=== PATIENT | female | born 1965 | race Caucasian/White ===

== ENCOUNTER 2024-09-01 13:35 | Emergency (ER) | payer SELFPAY ==
[2024-09-01 13:36] VITALS: BP 145/100; PULSE 120; RESP 16; TEMP 36.4; O2SAT 100
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
--- OUTSIDE RECORDS SUMMARY | 2024-09-01 15:04 | XMS_ITS | Encounter Summary ---
Author Organization [facility] Facility Care Team Providers Care Lacrosse Coach Name Role Phone No, Physician Primary Care Provider [phone] Eron Lmabert DO Primary Care Provider [phone] Sree, Dalia DO Primary Care Provider [phone] Sree, Dalia DO Primary Care Provider [phone] Sree, Dalia DO Unavailable [phone] Rashel Hui MD Unavailable [phone] Esvin Brown MD Unavailable [phone] Encounter Details Date Type Department Care Team (Latest Contact Info) Description 05/05/2016 Orders Only [facility] ProviderTheodore MD [address] [place] [address] Social History Tobacco Use Types Packs/Day Years Used Date Smoking Tobacco: Never Comments Unknown Sex and Gender Information Value Date Recorded Sex Assigned at Not on file Legal Sex Female 10:51 PM SITE MEDICAL DIRECTOR Gender Identity Not on file Sexual Orientation Not on file documented as of this encounter Plan of Treatment Not on file documented as of this encounter Procedures Procedure Name Priority Date/Time Associated Diagnosis Comments SCAN - LABS 05/07/2016 12:00 AM SITE MEDICAL DIRECTOR documented in this encounter Results * SCAN - LABS (05/07/2016 12:00 AM SITE MEDICAL DIRECTOR) Narrative 05/07/2016 12:00 AM SITE MEDICAL DIRECTOR Ordered by an unspecified provider. us Historical Provider Final Res ult documented in this encounter Visit Diagnoses Not on filedocumented in this encounter Care Teams Lacrosse Coach Relationship Specialty Start Date End Date No, Physician PCP - General 10/30/20 12/04/20 Eron Lambert DO [address] [place] [address] PCP - General Occupational Medicine 12/05/20 02/01/21 Dalia Balbuena DO [address] [facility] [address] [place] [address] PCP - General Family Medicine 02/02/21 02/15/21 Dalia Balbuena DO [address] [facility] [address] [place], [place] [address] PCP - General Family Medicine 02/16/21 Dalia Balbuena DO [address] [address] Family Medicine 02/16/21 Rashel Hui MD [address] [facility] [address] [place] [address] Consulting Physician Plastic Surgery 02/02/21 Esvin Brown MD [address] [place], [place] [address] Referring Physician Neurology 12/14/23 documented as of this encounter
--- OUTSIDE RECORDS SUMMARY | 2024-09-01 15:04 | XMS_ITS | Encounter Summary ---
Author Organization [facility] Facility Care Team Providers Care Greens Laborer Name Role Phone No, Physician Primary Care Provider [phone] Eron Lambert DO Primary Care Provider [phone] Sree, Dalia DO Primary Care Provider [phone] Sree, Dalia DO Primary Care Provider [phone] Sree, Dalia DO Unavailable [phone] Rashel Hui MD Unavailable [phone] Esvin Brown MD Unavailable [phone] Encounter Details Date Type Department Care Team (Latest Contact Info) Description 12/04/2016 Orders Only [facility] CLINCONV ProviderTheodore MD [address] [place] [address] Social History Tobacco Use Types Packs/Day Years Used Date Smoking Tobacco: Never Comments Unknown Sex and Gender Information Value Date Recorded Sex Assigned at Not on file Legal Sex Female 10:51 PM RESEARCH WORKER [employer] Gender Identity Not on file Sexual Orientation Not on file documented as of this encounter Plan of Treatment Not on file documented as of this encounter Procedures Procedure Name Priority Date/Time Associated Diagnosis Comments SCAN - LABS 12/09/2016 12:00 AM CDT documented in this encounter Results * SCAN - LABS (12/09/2016 12:00 AM CDT) Narrative 12/09/2016 12:00 AM CDT Ordered by an unspecified provider. us Historical Provider Final Res ult documented in this encounter Visit Diagnoses Not on filedocumented in this encounter Care Teams Greens Laborer Relationship Specialty Start Date End Date No, Physician PCP - General 10/30/20 12/04/20 Eron Lambert DO [address] [place] [address] PCP - General Occupational Medicine 12/05/20 02/01/21 Dalia Balbuena DO [address] [facility] [address] [place] [address] PCP - General Family Medicine 02/02/21 02/15/21 Dalia Balbuena DO [address] [facility] [address] [place], [place] [address] PCP - General Family Medicine 02/16/21 Dalia Balbuena DO [address] [facility] [address] [place], [place] [address] Family Medicine 02/16/21 Rashel Hui MD [address] [facility] [address] [place] [address] Consulting Physician Plastic Surgery 02/02/21 Esvin Brown MD [address] [place], [place] [address] Referring Physician Neurology 12/14/23 documented as of this encounter
--- OUTSIDE RECORDS SUMMARY | 2024-09-01 15:04 | XMS_ITS | Encounter Summary ---
Author Organization [facility] Facility Care Team Providers Care Bank Representative Name Role Phone No, Physician Primary Care Provider [phone] Eron Lambert DO Primary Care Provider [phone] Sree, Dalia DO Primary Care Provider [phone] Sree, Dalia DO Primary Care Provider [phone] Sree, Dalia DO Unavailable [phone] Rashel Hui MD Unavailable [phone] Esvin Brown MD Unavailable [phone] Encounter Details Date Type Department Care Team (Latest Contact Info) Description 08/01/2016 Orders Only [facility] CLINCONV ProviderTheodore MD [address] [place] [address] Social History Tobacco Use Types Packs/Day Years Used Date Smoking Tobacco: Never Comments Unknown Sex and Gender Information Value Date Recorded Sex Assigned at Not on file Legal Sex Female 10:51 PM DIAMOND DRILLER HELPER Gender Identity Not on file Sexual Orientation Not on file documented as of this encounter Plan of Treatment Not on file documented as of this encounter Procedures Procedure Name Priority Date/Time Associated Diagnosis Comments PROCEDURE - RESULT 08/14/2016 12 :00 AM DIAMOND DRILLER HELPER PROCEDURE - RESULT 08/02/2016 12 :00 AM DIAMOND DRILLER HELPER documented in this encounter Results * PROCEDURE - RESULT (08/14/2016 12:00 AM DIAMOND DRILLER HELPER) Narrative 08/14/2016 12:00 AM DIAMOND DRILLER HELPER Ordered by an unspecified provider. Historical Provider Final Res ult * PROCEDURE - RESULT (08/02/2016 12:00 AM DIAMOND DRILLER HELPER) Narrative 08/02/2016 12:00 AM DIAMOND DRILLER HELPER Ordered by an unspecified provider. Historical Provider Final Res ult documented in this encounter Visit Diagnoses Not on filedocumented in this encounter Care Teams Bank Representative Relationship Specialty Start Date End Date No, Physician PCP - General 10/30/20 12/04/20 Eron Lambert DO [address] [place], [place] [address] PCP - General Occupational Medicine 12/05/20 02/01/21 Dalia Balbuena, [address] [facility] [address] [place], [place] [address] PCP - General Family Medicine 02/02/21 02/15/21 Dalia Balbuena DO [address] [facility] [address] [place], [place] [address] PCP - General Family Medicine 02/16/21 Dalia Balbuena, [address] [facility] [address] [place], [place] [address] Family Medicine 02/16/21 Rashel Hui MD [address] [facility] [address] [place], [place] [address] Consulting Physician Plastic Surgery 02/02/21 Esvin Brown MD [address] [place] [address] Referring Physician Neurology 12/14/23 documented as of this encounter
--- OUTSIDE RECORDS SUMMARY | 2024-09-01 15:04 | XMS_ITS | Encounter Summary ---
Author Organization [facility] Address [address] [place] [address] Phone Care Team Providers Care Supervisor Shop Name Role Phone Sree, Dalia DO Primary Care Provider [phone] Sree, Dalia DO Primary Care Provider [phone] Sree, Dalia DO Unavailable [phone] Rashel Hui MD Unavailable [phone] Esvin Brown MD Unavailable [phone] Encounter Details Date Type Department Care Team (Latest Contact Info) Description 02/08/2021 Orders Only [facility] Scanning, Provider Social History Tobacco Use Types Packs/Day Years Used Date Smoking Tobacco: Never Comments Unknown Sex and Gender Information Value Date Recorded Sex Assigned at Not on file Legal Sex Female 10:51 PM SMOCKER Gender Identity Not on file Sexual Orientation Not on file documented as of this encounter Plan of Treatment Not on file documented as of this encounter Procedures Procedure Name Priority Date/Time Associated Diagnosis Comments SCAN - RADIOLOGY/IMAGING 02/08/2021 documented in this encounter Results * SCAN - RADIOLOGY/IMAGING (02/08/2021) Anatomical Region Laterality Modality Other us Provider Scanning Final Result documented in this encounter Visit Diagnoses Not on filedocumented in this encounter Care Teams Supervisor Shop Relationship Specialty Start Date End Date Dalia Balbuena DO [address] [address] PCP - General Family Medicine 02/02/21 02/15/21 Dalia Balbuena DO [address] [address] PCP - General Family Medicine 02/16/21 Dalia Balbuena DO [address] [address] Family Medicine 02/16/21 Rashel Hui MD [address] [address] Consulting Physician Plastic Surgery 02/02/21 Esvin Brown MD 3 [place] [address] Referring Physician Neurology 12/14/23 documented as of this encounter
--- OUTSIDE RECORDS SUMMARY | 2024-09-01 15:04 | XMS_ITS | Referral Summary ---
Author Organization [facility] [address] Address [address] [place] [address] Care Team Providers Care Staffing Program Manager Name Role Phone Dalia Balbuena DO Primary Care Provider [phone] Dalia Balbuena DO Unavailable [phone] Rashel Hui MD Unavailable [phone] Esvin Brown MD Unavailable [phone] Encounters Date Type Department Care Team Description 08/13/2024 Orders Only [facility] Health Information Management [address] [place] [address] Scanning, Provider from Last 3 Months Allergies Active Allergy Reactions Criticality Noted Date [...] total) by mouth once a week 12/09/19 Active topiramate (TOPAMAX) 25 mg tablet Take 1 tablet (25 mg total) by mouth daily 12/11/19 Active Nurtec ODT tablet,disintegrat ing Take by [...] 02/18/2024 Assessment & Plan (04/19/2024 11:43 AM GROUNDS MAINTENANCE SUPERVISOR): The patient is presenting for follow up [...] (01/24/2021): Added automatically from request for surgery [id number] Arthralgia of ankle 07/09/2012 Pain of foot 07/01/2012 Resolved Problems Problem Noted Date Diagnosed Date Resolved Date Arthralgia of hip 06/11/2012 02/18/2024 Immunizations Immunization Administration Dates Next Due Influenza, Quadrivalent, Spl it, Preservative Free, Intramuscular 07/29/2014 Influenza, Trivalent, IM (MDV) 06/17/2013 Influenza, Unspecified 04/29/2014 Pneumococcal Polysaccharide PPV23 09/16/2013 Social History Tobacco Use Types Packs/Day Years Used Date Smoking Tobacco: Former Cigarettes Q uit: 2009 Smokeless Tobacco: Never Tobacco Cessation:Counseling Given: Not Answered Comments No Sex and Gender Information Value Date Recorded Sex Assigned at Not on file Legal Sex Female 10:51 PM GROUNDS MAINTENANCE SUPERVISOR Gender Identity Not on file Sexual Orientation Not on file Last Filed Vital Signs Vital Sign Reading Time Taken Comments Blood Pressure 100/56 04/19/2024 10:33 AM GROUNDS MAINTENANCE SUPERVISOR Pulse 98 04/19/2024 10:33 AM GROUNDS MAINTENANCE SUPERVISOR Temperature 36.3 C (97.3 F) 04/19/2024 10:33 AM GROUNDS MAINTENANCE SUPERVISOR Respiratory Rate 17 02/23/2021 10:2 7 AM CDT Oxygen Saturation 95% 04/19/2024 10: 33 AM GROUNDS MAINTENANCE SUPERVISOR Inhaled Oxygen Concentration - - Weight 99.7 kg (219 lb 12.8 oz) 024 10:33 AM GROUNDS MAINTENANCE SUPERVISOR Height 170.2 cm (5' 7 ) 04/19/2024 10:3 3 AM GROUNDS MAINTENANCE SUPERVISOR Body Mass Index 34.43 04/19/2024 10:33 AM GROUNDS MAINTENANCE SUPERVISOR Plan of Treatment Not on file Procedures Procedure Name Priority Date/Time Associated Diagnosis Comments SCAN - OTHER ORDERS 08/13/2024 EGFR Routine 02/18/2024 3:15 PM CDT Generalized pain TNI WITH LIPID PANEL Routine 07/27/2014 1:41 AM GROUNDS MAINTENANCE SUPERVISOR SCREENING MAMMOGRAM 2D BILATERAL Routine 03/30/2014 7:50 [...] 3:15 PM CDT 02/18/2024 3:15 PM CDT us Vickey Ward MD LAB BLOOD ORDERABLES Final Result [facility] [address] Department [place] [address] * TNI with LIPID PANEL (07/27/2014 1:41 AM GROUNDS MAINTENANCE SUPERVISOR) Troponin I < 0.300 0.000 - 0.300 ng/mL 07/27/2014 2:27 AM [employer] HISTORICAL RESULTS Comment: Reference using [facility]RIST[facility] Chemiluminescence Negative: Repeat in 4-6 hours as indicated. Triglycerides 131 0 - 199 mg/dL 07/27/2014 2:29 AM [employer] HISTORICAL RESULTS Comment:12 hr pc highly kevin mmended for Triglyceride Cholesterol 192 0 - 199 mg/dL 07/27/2014 2:31 AM [employer] HISTORICAL RESULTS Comment: Borderline: 200-239 High Risk: >239 HDL Cholesterol 42 40 - 60 mg/dL 07/27/2014 2:29 AM [employer] HISTORICAL RESULTS Comment: Major Risk < 40 mg/dL Moderate Risk 40-60 mg/dL Negative Risk > 60 mg/dL LDL Cholesterol, Calc 124 0 - 130 mg/dL 07/27/2014 2:31 AM [employer] HISTORICAL RESULTS Comment:High Risk > 159 mg/d L Cholesterol/HDL Ratio 4.6 07/27/2014 2:31 AM GROUNDS MAINTENANCE SUPERVISOR [facility] HISTORICAL RESULTS Comment: Cholesterol / HDL Ratio 3.5:1 or less is desirable. Cholesterol / HDL Ratio greater than 5:1 is considered higher risk for developing heart disease. 07/27/2014 1:41 AM GROUNDS MAINTENANCE SUPERVISOR 07/27/2014 1:43 AM GROUNDS MAINTENANCE SUPERVISOR us Jimmy Back MD LAB BLOOD ORDERABLES Fin al Result [facility] HISTORICAL RESULTS * Screening Mammogram 2D Bilateral [...] AM: Isreal Tripathi M.D. Isreal Tripathi M.D. [place]:md 09:13 AM 09:13 AM [facility] [EOD] Narrative 03/30/2014 9:16 AM CDT EXAMINATION: [...] NEGATIVE. The patient will be entered into Sequence system for an annual screening mammogram in 1 year. THIS IS AN ELECTRONICALLY VERIFIED REPORT 03/30/2014 9:13 AM: Isreal Tripathi M.D. Isreal Tripathi M.D. [place]:md 09:13 AM 09:13 AM [facility] [EOD] Una MONET IMG MAMMO PROCEDURES Final Result from Last 3 Months or Most Recently Relevant to Health Maintenance Insurance [employer] O[employer] OOS Care Teams Staffing Program Manager Relationship Specialty Start Date End Date Dalia Balbuena DO PCP - General Family Medicine 02/16/21 Dalia Balbuena DO [address] [address] Family Medicine 02/16/21 Rashel Hui MD [address] [address] Consulting Physician Plastic Surgery 02/02/21 Esvin Brown MD 3 [place], [place] [id number] Referring Physician Neurology 12/14/23
--- OUTSIDE RECORDS SUMMARY | 2024-09-01 15:05 | XMS_ITS | Encounter Summary ---
Author Organization [facility] Address [facility] [place] [address] Care Team Providers Care Drafting Detailer Name Role Phone Dalia Balbuena Primary Care Provider [phone] Encounter Details Date Type Department Care Team (Late st Contact Info) Description 02/11/2024 MyChart Message Enc [facility] Medical Group Multispecialty Care - [facility] [address] [facility], [address] [place] [phone] Esvin Brown MD 3 [place], [place] [id number] [place]on Social History Tobacco Use Types Packs/Day Years Used Date Smoking Tobacco: Former Cigarettes Passive Smoke Exposure: Past Smokeless Tobacco: Never Comments: Discretion Alcohol Use Standard Drinks/Week Comments Yes 0 (1 standard drink = 0.6 oz pur e alcohol) rare use PHQ-2 Answer Date Recorded Patient Health Questionnaire-2 Score 0 02/09/2024 Comments No Sex and Gender Information Value Date Recorded Sex Assigned at Female 06/30/2024 5:04 PM MICROSTRATEGY BI DEVELOPER Legal Sex Female 11:46 PM CDT Gender Identity Female 08/04/2024 9:52 AM MICROSTRATEGY BI DEVELOPER Sexual Orientation Not on file documented as of this encounter Plan of Treatment Upcoming Encounters Date Type Department Care Team (Late st Contact Info) Description 09/17/2024 3:[address] [address] Davonte Marie, BITA [address] [place] [address] 09/24/2024 9:40 AM CDT Office Visit [facility] Medical Group Multispecialty Care - [facility] [address] [place] [address] Esvin Brown MD [address] [place] [address] documented as of this encounter Visit Diagnoses Not on filedocumented in this encounter Additional Health Concerns Assessment Noted Time PHQ-9 Depression Total Score: 0 02/09/20 24 9:56 AM CDT documented as of this encounter Care Teams Drafting Detailer Relationship Specialty Start Date End Date Dalia Balbuena DO [address] [place] [address] PCP - General FAMILY PRACTICE 01/29/21 documented as of this encounter
--- OUTSIDE RECORDS SUMMARY | 2024-09-01 15:05 | XMS_ITS | Encounter Summary ---
Author Organization [facility] Address [address] [place] [address] Care Team Providers Care Certified Pedorthotist Name Role Phone Dalia Balbuena Primary Care Provider [phone] Encounter Details Date Type Department Care Team (Late st Contact Info) Description 09/01/2024 2:55 PM CDT Emergency [facility] Emergency Room [place], [place] [id number] Social History Tobacco Use Types Packs/Day Years Used Date Smoking Tobacco: Former Cigarettes Passive Smoke Exposure: Past Smokeless Tobacco: Never Comments:MD Discretion Alcohol Use Standard Drinks/Week Comments Yes 0 (1 standard drink = 0.6 oz pur e alcohol) rare use PHQ-2 Answer Date Recorded Patient Health Questionnaire-2 Score 0 08/04/2024 Comments No Sex and Gender Information Value Date Recorded Sex Assigned at Female 06/30/2024 5:04 PM CARE SUPPORT REPRESENTATIVE Legal Sex Female 11:46 PM CDT Gender Identity Female 08/04/2024 9:52 AM CARE SUPPORT REPRESENTATIVE Sexual Orientation Not on file 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 Not on file No t on file documented as of this encounter Last Filed Vital Signs Vital Sign Reading Time Taken Comments Blood Pressure 131/92 09/01/2024 2:59 PM CDT Pulse 106 09/01/2024 2:59 PM CDT Temperature 36 C (96.8 F) 09/01/2024 2:59 PM CDT Respiratory Rate 20 09/01/2024 2:59 PM CDT Oxygen Saturation 97% 09/01/2024 2:59 PM CDT Inhaled Oxygen Concentration - - Weight 99.8 kg (220 lb) 09/01/2024 2:59 PM CDT Height 170.2 cm (5' 7 ) 09/01/2024 2:59 PM CDT Body Mass Index 34.46 09/01/2024 2:59 PM CDT documented in this encounter Plan of Treatment Upcoming Encounters Date Type Department Care Team (Late st Contact Info) Description 09/17/2024 3:30 PM CDT Appointment [facility] [address] [facility] [place] [address] Davonte Marie FNP [address] [place] [address] 09/24/2024 9:40 AM CDT Office Visit [facility] Medical Group Multispecialty Care - [facility] [address] [facility], [address] [place] [address] Esvin Brown MD [address] [place] [address] documented as of this encounter Visit Diagnoses Not on filedocumented in this encounter Additional Health Concerns Assessment Noted Time PHQ-9 Depression Total Score: 11 025 10:10 AM CARE SUPPORT REPRESENTATIVE documented as of this encounter Care Teams Certified Pedorthotist Relationship Specialty Start Date End Date Dalia Balbuena DO [address] [place] [address] PCP - General FAMILY PRACTICE 01/29/21 documented as of this encounter
--- OUTSIDE RECORDS SUMMARY | 2024-09-01 15:05 | XMS_ITS | Encounter Summary ---
Author Organization [facility] Address [address] [place] [address] Care Team Providers Care Mountain Services Manager Name Role Phone Dalia Balbuena DO Primary Care Provider [phone] Encounter Details Date Type Department Care Team (Late st Contact Info) Description 03/10/2024 MyCEventot Message Enc [facility] Medical Group Family Medicine - [place] [address] [facility], [address] [place] [address] Dalia Balbuena DO [address] [place] [address] Urinary Social History Tobacco Use Types Packs/Day Years Used Date Smoking Tobacco: Former Cigarettes Passive Smoke Exposure: Past Smokeless Tobacco: Never Comments:MD Discretion Alcohol Use Standard Drinks/Week Comments Yes 0 (1 standard drink = 0.6 oz pur e alcohol) rare use PHQ-2 Answer Date Recorded Patient Health Questionnaire-2 Score 0 03/08/2024 Comments No Sex and Gender Information Value Date Recorded Sex Assigned at Female 06/30/2024 5:04 PM NURSE MIDWIFE/CLINICAL INSTRUCTOR Legal Sex Female 11:46 PM CDT Gender Identity Female 08/04/2024 9:52 AM NURSE MIDWIFE/CLINICAL INSTRUCTOR Sexual Orientation Not on file documented as of this encounter Plan of Treatment Upcoming Encounters Date Type Department Care Team (Late st Contact Info) Description 09/17/2024 3:30 PM CDT [place] [address] Davonte Marie FNP [address] [place] [address] 09/24/2024 9:40 AM CDT Office Visit [facility] Medical Group Multispecialty Care - [facility] [address], [address] [place] [address] Esvin Brown MD [address] [place] [address] documented as of this encounter Visit Diagnoses Not on filedocumented in this encounter Additional Health Concerns Assessment Noted Time PHQ-9 Depression Total Score: 0 03/08/20 24 1:57 PM CDT documented as of this encounter Care Teams Mountain Services Manager Relationship Specialty Start Date End Date Dalia Balbuena DO [address] [place] [address] PCP - General FAMILY PRACTICE 01/29/21 documented as of this encounter
--- OUTSIDE RECORDS SUMMARY | 2024-09-01 15:05 | XMS_ITS | Encounter Summary ---
Author Organization [facility] Address [facility] [place] [address] Care Team Providers Care Bmw Service Technician Name Role Phone Dalia Balbuena Primary Care Provider [phone] Encounter Details Date Type Department Care Team (Late st Contact Info) Description 06/03/2024 Therapy Plan [facility] Medical Group Multispecialty Care - [facility] [address] [facility], [address] [place] [address] Esvin Brown MD [address] [place] [address] Social History Tobacco Use Types Packs/Day Years [...] Sex Assigned at Female 06/30/2024 5:04 PM REAL ESTATE APPRAISER Legal Sex Female 11:46 PM CDT Gender Identity Female 08/04/2024 9:52 AM REAL ESTATE APPRAISER Sexual Orientation Not on file 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 Not on file No t on file documented as of this encounter Plan of Treatment Upcoming Encounters Date Type Department Care Team (Late st Contact Info) Description 09/17/2024 3:30 PM CDT Appointment [facility] [address] [facility] [place] [address] Davonte Marie FNP [address] [place] [address] 09/24/2024 9:40 AM CDT Office Visit [facility] Medical Group Multispecialty Care - [facility] [address] [facility], [address] [place] [address] Esvin Brown MD [address] [place] [address] documented as of this encounter Visit Diagnoses Not on filedocumented in this encounter Additional Health Concerns Assessment Noted Time PHQ-9 Depression Total Score: 0 03/08/20 24 1:57 PM CDT documented as of this encounter Care Teams Bmw Service Technician Relationship Specialty Start Date End Date Dalia Balbuena DO [address] [place] [address] PCP - General FAMILY PRACTICE 01/29/21 documented as of this encounter
--- OUTSIDE RECORDS SUMMARY | 2024-09-01 15:05 | XMS_ITS | Encounter Summary ---
Author Organization [facility] Address [address] [place] [address] Care Team Providers Care Bad Cloth Checker Name Role Phone Kali Miramontes MD Primary Care Provider None, Provider Primary Care Provider Unavaila ble None, Provider Primary Care Provider Unavaila ble Sree, Dalia DO Primary Care Provider [phone] Encounter Details Date Type Department Care Team (Late st Contact Info) Description 11/21/2018 Abstract [facility] CONVERSION [address] [place], [place] [id number] , Generic Conversion, Social History Tobacco Use Types Packs/Day Years Used Date Smoking Tobacco: Never Smokeless Tobacco: Never Alcohol Use Standard Drinks/Week Comments No 0 (1 standard drink = 0.6 oz pur e alcohol) Comments No Sex and Gender Information Value Date Recorded Sex Assigned at Female 06/30/2024 5:04 PM DIRECTOR OF FINANCIAL AID Legal Sex Female 11:46 PM CDT Gender Identity Female 08/04/2024 9:52 AM DIRECTOR OF FINANCIAL AID Sexual Orientation Not on file documented as of this encounter Plan of Treatment Upcoming Encounters Date Type Department Care Team (Late Contact Info) Description 09/17/2024 3:30 PM CDT Appointment [place] [address] Davonte Marie, TOW BAR DRIVER [address] [place] [address] 09/24/2024 9:40 AM CDT Office Visit [facility] Medical Group Multispecialty Care - [facility] [address] [facility], [address] [place] [address] Esvin Brown MD 3 [place] [address] documented as of this encounter Visit Diagnoses Not on filedocumented in this encounter Additional Health Concerns Infection Onset Date Last Indicated Resolved Time COVID-19 Rule Out 04/29/2020 04/29/2020 04/30/2020 7:16 PM DIRECTOR OF FINANCIAL AID documented as of this encounter Care Teams Bad Cloth Checker Relationship Specialty Start Date End Date Kali Miramontes MD PCP - General 05/05/16 08/02/20 None, ProviderMD PCP - General 08/03/20 11/30/20 None, Provider, PCP - General 12/01/20 01/28/21 Dalia Balbuena DO [address] [place] [address] PCP - General FAMILY PRACTICE 01/29/21 documented as of this encounter
--- OUTSIDE RECORDS SUMMARY | 2024-09-01 15:05 | XMS_ITS | Encounter Summary ---
Author Organization [facility] Address [facility] [place] [address] Care Team Providers Care Rotary Planer Set Up Operator Name Role Phone Dalia Balbuena Primary Care Provider [phone] Encounter Details Date Type Department Care Team (Latest Contact Info) Description 03/04/2024 MyChart Message Enc [facility] Medical Group Multispecialty Care - [facility] [address] [facility], [address] [place] [address] Esvin Brown MD [address] [place] [address] Need number to call for Botox to be filled Social History Tobacco Use Types Packs/Day Years [...] Sex Assigned at Female 06/30/2024 5:[address] TRANSCRIBER Legal Sex Female 11:46 PM CDT Gender Identity Female 08/04/2024 9:[address] TRANSCRIBER Sexual Orientation Not on file documented as of this encounter Plan of Treatment Upcoming Encounters Date Type Department Care Team (Late st Contact Info) Description 09/17/2024 3:[address] [facility] [place] [address] Davonte Marie FNP [address] [place] [address] 09/24/2024 9:40 AM CDT Office Visit [facility] Medical Group Multispecialty Care - [facility] [address] [place] [address] Esvin Brown MD [address] [place] [address] documented as of this encounter Visit Diagnoses Not on filedocumented in this encounter Additional Health Concerns Assessment Noted Time PHQ-9 Depression Total Score: 0 02/09/20 24 9:56 AM CDT documented as of this encounter Care Teams Rotary Planer Set Up Operator Relationship Specialty Start Date End Date Dalia Balbuena DO [address] [place] [address] PCP - General FAMILY PRACTICE 01/29/21 documented as of this encounter
--- OUTSIDE RECORDS SUMMARY | 2024-09-01 15:05 | XMS_ITS | Encounter Summary ---
Author Organization [facility] Address [facility] [place] [address] Care Team Providers Care Airline Lounge Receptionist Name Role Phone Dalia Balbuena Primary Care Provider [phone] Encounter Details Date Type Department Care Team (Latest Contact Info) Description 11/21/2023 MyCAugmentation Industriest Message Enc [facility] Medical Group Multispecialty Care - [facility] [address] [facility], [address] [place] [address] Esvin Brown MD [address] [place] [address] Muscles feeling like jello Social History Tobacco Use Types Packs/Day Years Used Date Smoking Tobacco: Former Cigarettes Passive Smoke Exposure: Past Smokeless Tobacco: Never Comments: Discretion Alcohol Use Standard Drinks/Week Comments Yes 0 (1 standard drink = 0.6 oz pur e alcohol) rare use PHQ-2 Answer Date Recorded Patient Health Questionnaire-2 Score 0 08/25/2023 Comments No Sex and Gender Information Value Date Recorded Sex Assigned at Female 06/30/2024 5:04 PM PROCEDURES TECH Legal Sex Female 11:46 PM CDT Gender Identity Female 08/04/2024 9:52 AM PROCEDURES TECH Sexual Orientation Not on file documented as of this encounter Plan of Treatment Upcoming Encounters Date Type Department Care Team (Late st Contact Info) Description 09/17/2024 3:[address] [place] [address] Davonte Marie FNP [address] [place] [address] 09/24/2024 9:40 AM CDT Office Visit [facility] Medical Group Multispecialty Care - [facility] [address], [address] [place] [address] Esvin Brown MD [address] [place] [address] documented as of this encounter Visit Diagnoses Not on filedocumented in this encounter Additional Health Concerns Assessment Noted Time PHQ-9 Depression Total Score: 9 08/25/19 24 2:37 PM CDT documented as of this encounter Care Teams Airline Lounge Receptionist Relationship Specialty Start Date End Date Dalia Balbuena DO [address] [place] [address] PCP - General FAMILY PRACTICE 01/29/21 documented as of this encounter
--- OUTSIDE RECORDS SUMMARY | 2024-09-01 15:05 | XMS_ITS | Encounter Summary ---
Author Organization [facility] [place] Address [facility] [place] [address] Care Team Providers Care Conveyor Installer Name Role Phone Dalia Balbuena Primary Care Provider [phone] Encounter Details Date Type Department Care Team (Late st Contact Info) Description 03/09/2024 MyChart Message Enc [facility] Medical Group Multispecialty Care - [facility] [address] [facility], [address] [place] [id number] Esvin Brown MD [address] [place], [place] [id number] Botox appt Social History Tobacco Use Types Packs/Day Years [...] Sex Assigned at Female 06/30/2024 5:04 PM EMERGENCY MANAGEMENT PROGRAM SPECIALIST Legal Sex Female 11:46 PM CDT Gender Identity Female 08/04/2024 9:52 AM EMERGENCY MANAGEMENT PROGRAM SPECIALIST Sexual Orientation Not on file documented as of this encounter Plan of Treatment Upcoming Encounters Date Type Department Care Team (Late st Contact Info) Description 09/17/2024 3:[address] [facility] [place] [address] Davonte Marie FNP [address] [place] [address] 09/24/2024 9:40 AM CDT Office Visit [facility] Medical Group Multispecialty Care - [facility] [address] [place] [address] Esvin Brown MD [address] [place] [address] documented as of this encounter Visit Diagnoses Not on filedocumented in this encounter Additional Health Concerns Assessment Noted Time PHQ-9 Depression Total Score: 0 03/08/20 24 1:57 PM CDT documented as of this encounter Care Teams Conveyor Installer Relationship Specialty Start Date End Date Dalia Balbuena DO [address] [place] [address] PCP - General FAMILY PRACTICE 01/29/21 documented as of this encounter
--- OUTSIDE RECORDS SUMMARY | 2024-09-01 15:05 | XMS_ITS | Encounter Summary ---
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 [facility] [place] [place] [address] Davonte Marie, BITA [address] [place] [address] 09/24/2024 9:40 AM CDT Office Visit [facility] Medical Group Multispecialty Care - [facility] [address] [facility], [address] [place] [address] Esvin Brown MD [address] [place] [address] documented as of this encounter Visit Diagnoses Not on filedocumented in this encounter Additional Health Concerns Assessment Noted Time PHQ-9 Depression Total Score: 11 025 10:10 AM PLANNING MANAGER documented as of this encounter Care Teams City Collector Relationship Specialty [place] [address] [place] [address] PCP - General FAMILY PRACTICE 01/29/21 documented as of this encounter
--- OUTSIDE RECORDS SUMMARY | 2024-09-01 15:05 | XMS_ITS | Clinical Summary ---
Author Organization [facility] Address [address] [place] [address] Care Team Providers Care Metal Bench Patternmaker Name Role Phone Kali Miramontes MD Primary Care Provi desire Source Comments [facility],non-owned Affiliates and Associated Physician Practices is amultiple site organization consisting of ambulatory clinics and hospital sitesin [place], [place], [place] and [place]. This disclosure is being madepursuant to the Care Everywhere program and may not contain all information available regarding this patient. Last updated 18.[facility] Allergies Active Allergy Reactions Criticality Noted Date Comments Cyclobenzaprine Other Low 07/24/2015 Lowers BP Metoclopramide Urticaria,Shortness of Breath High Medications * Be aware that medications may not be up to date on this document. Alwaysverify current medications with the patient. 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 Irritable bowel syndrome without diarrhea 2015 Overview (09/15/2017): Constipation predominate Gastro-esophageal reflux disease without esophag itis 07/24/2015 Encounters Date Type Department Care Team Description 08/17/2024 Telephone [facility] - Endocrinology [address] [place] [address], [place] [address] Luke Amin MD Appointment from Last 3 Months Family History Medical History Relation Name Comments None Known Brother 1 Status: Alive None Known Brother 2 Status: Alive None Known Brother 3 Status: d Diabetes Father Status: d Heart Disease Father Hypertension Father CVA Mother Diabetes Mother Status: d Heart Disease Mother Hypertension Mother Cancer Paternal Aunt Female None Known Sister Status: Alive Relation Name Status Comments Brother 1 Brother 2 Brother 3 Father Mother Paternal Aunt Sister Social History Tobacco Use Types Packs/Day Years Used Date Smoking Tobacco: Former Cigarettes Q uit: 06/16/2008 Smokeless Tobacco: Never Alcohol Use Standard Drinks/Week Comments No 0 (1 standard drink = 0.6 oz pur e alcohol) Sex and Gender Information Value Date Recorded Sex Assigned at Not on file Gender Identity Not on file Sexual Orientation Not on file Last Filed Vital Signs Vital Sign Reading Time Taken Comments Blood Pressure 153/93 11/30/2018 2:24 PM CDT Pulse 87 11/30/2018 2:24 PM CDT Temperature 37 C (98.6 F) 11/30/2018 2:24 PM CDT Respiratory Rate 18 11/30/2018 2:24 PM CDT Oxygen Saturation 99% 11/30/2018 2:24 PM CDT Inhaled Oxygen Concentration - - Weight 104.7 kg (230 lb 12.8 oz) 11/30/2018 2:24 PM CDT Height 170.2 cm (5' 7 ) 11/30/2018 2:24 PM CDT Body Mass Index 36.15 11/30/2018 2:24 PM CDT Plan of Treatment Upcoming Encounters Date Type Department Care Team (Late st Contact Info) Description 10/12/2024 10:00 AM CDT Office Visit [facility]ician Group - Endocrinology [address] [place] [address], [place] [address] Luke Amin MD [address] [place] [address] [place] [address] Health Maintenance Due Date Last Done Comments COLOGUARD (AGES 45-75) - COL ON CA SCREENING 1964 COLON MONITORING 1964 COLONOSCOPY - COLON CA SCREENING 1964 CT COLONOGRAPHY - COLON CA SCREENING 1964 Colorectal Cancer Screening 1964 FIT - COLON CA SCREENING 1964 FLEX SIG - COLON CA SCREENING 1964 PAP SMEAR 1964 HIV SCREENING 12/07/1979 DTAP/TDAP/TD VACCINES (1 - Tdap) 12/07/1983 HEPATITIS B VACCINE (1 of 3 - 19+ 3-dose series) 12/07/1983 PNEUMOCOCCAL VACCINE 50+ (1 of 1 - PCV) 2014 ZOSTER VACCINE (1 of 2) 2014 SCREENING FOR DIABETES 12/10/2021 12/10/2018 COVID-19 VACCINE (1 - 2023-2 5 season) 2024 INFLUENZA VACCINE (#1) 2024 5, 04/29/2014, 06/17/2013 DEPRESSION SCREENING 06/16/2024 MAMMOGRAM 01/26/2026 01/27/2024, 01/27/2024 LIPID TESTING 07/29/2029 07/29/2024 HEPATITIS C SCREENING Completed 04/14/2024 HIB VACCINE Aged Out No longer eligi ble based on patient's age to complete this topic HPV VACCINE Aged Out No longer eligi ble based on patient's age to complete this topic MENINGOCOCCAL (Group B) VACCINE SHARED DECISION-MAKING Aged Out No longer eligible based on patient's age to complete this topic MENINGOCOCCAL GROUPS A/C/Y/W VACCINE Aged Out No longer eligible b ased on patient's age to complete this topic Goals Goal Patient Goal Type Associated Problems Recent Progress Patient-Stated? Author Medication Management General On track( 019 2:29 PM CDT) Ly Kulkarni, RN Note: Expected end date: Ongoing Interventions: Take all medications as prescribed Let your doctor know right away about any changes in your medications Procedures Procedure Name Priority Date/Time Associated Diagnosis Comments COMPREHENSIVE METABOLIC PANEL Routine 12/10/2018 7:18 AM CDT Psychogenic vomiting with nausea from Last 3 Months or Most Recently Relevant to Health Maintenance Results * (ABNORMAL) COMPREHENSIVE METABOLIC PANEL (12/10/2018 7:18 AM CDT) Glucose 141(H) 65 - 99 mg/dL [facility] Comment: Fasting reference interval For someone without known diabetes, a glucose value >125 mg/dL indicates that they may have diabetes and this should be confirmed with a follow-up test. BUN 20 7 - 25 mg/dL [facility] Creatinine 0.83 0.50 - 1.05 mg/dL [facility] Comment: For patients >49 years of age, the reference limit for Creatinine is approximately 13% higher for people identified as -Ukrainian. eGFR by MDRD 80 > OR = 60 mL/min/1 .73m2 [facility] eGFR by MDRD 93 > OR = 60 mL/min/1 .73m2 [facility] BUN/Creatinine Ratio NOT APPLICABLE 6 - 22 (calc) [facility] Sodium 139 135 - 146 mmol/L [facility] Potassium 4.3 3.5 - 5.3 mmol/L [facility] Chloride 104 98 - 110 mmol/L [facility] CO2 26 20 - 32 mmol/L [facility] Calcium 9.1 8.6 - 10.4 mg/dL [facility] Protein Total 7.3 6.1 - 8.1 g/dL [facility] Albumin 3.9 3.6 - 5.1 g/dL [facility] Globulin Total 3.4 1.9 - 3.7 g/dL (calc) [facility] Albumin/Globulin Ratio 1.1 1.0 - 2.5 (calc) [facility] Bilirubin Total 0.3 0.2 - 1.2 mg/dL [facility] Alkaline Phosphatase 72 33 - 130 U/L [facility] AST 17 10 - 35 U/L [facility] ALT 19 6 - 29 U/L [facility] Comment: Test Performed at: [facility] [address] [address] VELASQUEZ PENNY DO,MPH Blood BLOOD SPECIMEN / Unknown 12/10/2018 7:18 AM CDT 12/10/2018 7:19 AM CDT Jeremy Gagnon MD LAB - CHEMISTRY [address] [place] [address] [place] [address] from Last 3 Months or Most Recently Relevant to Health Maintenance Care Teams Metal Bench Patternmaker Relationship Specialty Start Date End Date Kali Miramontes MD PCP - General 07/24/15
--- OUTSIDE RECORDS SUMMARY | 2024-09-01 15:05 | XMS_ITS | Encounter Summary ---
Author Organization [facility] Address [address] [place] [address] Care Team Providers Care Payroll Master Name Role Phone Dalia Balbuena Primary Care Provider [phone] Encounter Details Date Type Department Care Team (Late Contact Info) Description 05/04/2024 ESBATech Message Enc [facility] [address] [address] 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 Not on file No t on file documented as of this encounter Plan of Treatment Upcoming Encounters Date Type Department Care Team (Late Contact Info) Description 09/17/2024 3:30 PM CDT Appointment [place] [address] Davonte Marie, BITA [address] [place] [address] 09/24/2024 9:40 AM CDT Office Visit [facility] [address] [place] [address] Esvin Brown MD [address] [place] [address] documented as of this encounter Visit Diagnoses Not on filedocumented in this encounter Additional Health Concerns Assessment Noted Time PHQ-9 Depression Total Score: 0 03/08/20 24 1:57 PM CDT documented as of this encounter Care Teams Payroll Master Relationship Specialty Start Date End Date Dalia Balbuena DO [address] [place] [address] PCP - General FAMILY PRACTICE 01/29/21 documented as of this encounter
--- OUTSIDE RECORDS SUMMARY | 2024-09-01 15:05 | XMS_ITS | Encounter Summary ---
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 [place], [place] [id number] Davonte Marie FNP [address] [place] [address] 09/24/2024 9:40 AM CDT Office Visit [facility] Medical Group Multispecialty Care - [facility] [address] [facility], [address] [place] [address] Esvin Brown MD [address] [place] [address] documented as of this encounter Visit Diagnoses Not on filedocumented in this encounter Additional Health Concerns Assessment Noted Time PHQ-9 Depression Total Score: 11 08/04/ 025 10:10 AM BRAKE REPAIR SUPERVISOR documented as of this encounter Care Teams Radiation Oncologist Relationship Specialty [place] [address] [place] [address] PCP - General FAMILY PRACTICE 01/29/21 documented as of this encounter
--- OUTSIDE RECORDS SUMMARY | 2024-09-01 15:05 | XMS_ITS | Encounter Summary ---
Author Organization [facility] Address [address] [place] [address] Care Team Providers Care Clothing And Textiles Teacher Name Role Phone Dalia Balbuena Primary Care Provider [phone] Encounter Details Date Type Department Care Team (Late st Contact Info) Description 05/05/2024 [employer] Message Enc [facility], [facility] [address] [place] [address] Ne[address] [facility]. 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 [place] [address] Davonte Marie FNP [address] [place] [address] 09/24/2024 9:40 AM CDT Office Visit [facility] Medical Group Multispecialty Care - [facility] [address] [place] [address] Esvin Brown MD [address] [place] [address] documented as of this encounter Visit Diagnoses Not on filedocumented in this encounter Additional Health Concerns Assessment Noted Time PHQ-9 Depression Total Score: 0 03/08/20 24 1:57 PM CDT documented as of this encounter Care Teams Clothing And Textiles Teacher Relationship Specialty Start Date End Date Dalia Balbuena DO [address] [place] [address] PCP - General FAMILY PRACTICE 01/29/21 documented as of this encounter
--- OUTSIDE RECORDS SUMMARY | 2024-09-01 15:05 | XMS_ITS | Encounter Summary ---
Author Organization [facility] Address [address] [place] [address] Care Team Providers Care Corporate Development Officer Name Role Phone Dalia Balbuena DO Primary Care Provider [phone] Encounter Details Date Type Department Care Team (Late st Contact Info) Description 03/11/2024 [place] Message Enc [facility] Family Medicine - [place] [address] [facility], [address] [place] [address] Dalia Balbuena DO [address] [place] [address] pap smear Social History Tobacco Use Types Packs/Day Years [...] Sex Assigned at Female 06/30/2024 5:04 PM CLOUD CONSULTANT Legal Sex Female 11:46 PM CDT Gender Identity Female 08/04/2024 9:52 AM CLOUD CONSULTANT Sexual Orientation Not on file documented as of this encounter Plan of Treatment Upcoming Encounters Date Type Department Care Team (Late st Contact Info) Description 09/17/2024 3:[address] [place] [address] Davonte Marie FNP [address] [place] [address] 09/24/2024 9:40 AM CDT [facility] Mult[facility]ty [facility] - [facility] [address], [address] [place] [address] Esvin Brown MD [address] [place] [address] documented as of this encounter Visit Diagnoses Not on filedocumented in this encounter Additional Health Concerns Assessment Noted Time PHQ-9 Depression Total Score: 0 03/08/20 24 1:57 PM CDT documented as of this encounter Care Teams Corporate Development Officer Relationship Specialty Start Date End Date Dalia Balbuena DO [address] [place] [address] PCP - General FAMILY PRACTICE 01/29/21 documented as of this encounter
--- OUTSIDE RECORDS SUMMARY | 2024-09-01 15:05 | XMS_ITS | Clinical Summary ---
Author Organization [facility] Address [address] [place] [address] Care Team Providers Care Airborne Operations Superintendent Name Role Phone SreeSherman whipple Primary Care Provider [phone] Allergies Active Allergy Reactions Criticality Noted Date Comments Ciprofloxacin Rash Low 03/10/2024 Codeine GI Upset Low 11/15/2017 Cyclobenzaprine Other (see comment) 11/15/2017 LOW BP Metoclopramide Anaphylaxis High 11/15/2017 Medications prochlorperazine [address] 1 suppository (25 mg total) rectally every 12 (twelve) hours as needed for Nausea. Active rimegepant (NURTEC) 75 MG disintegrating tabletIndications :Migraine without aura, not intractable, without status migrainosus Take 1 tablet (75 mg total) by mouth as needed. Max of 1 tablet (75 mg) in 24 hours. 16 tablet 11 10/20/19 24 Active Erenumab-aooe (AIMOVIG) 70 MG/ML Solution Auto-injectorIndi cations:Chronic migraine w/o aura w/o status migrainosus, not intractable Inject 70 mg into the skin every 30 (thirty) days. 1 pen. 6 11/28/19 24 Active BOTOX 200 units injection Inject 200 Units into the muscle once. 12/08/19 24 Active gabapentin (NEURONTIN) 600 MG tabletIndications :Neuropathy Take 1 tablet (600 mg total) by mouth 3 (three) times daily. 90 tablet 11 12/11/19 24 Active topiramate (TOPAMAX) 25 MG tabletIndications :Neuropathy Take 1 tablet (25 mg total) by mouth nightly at bedtime. 30 tablet 11 12/11/19 24 Active Continuous Glucose Sensor (FREESTYLE DANY 3 SENSOR) MiscIndications:N ew onset type 2 diabetes mellitus ([facility]) Use as directed 3 each 4 01/02/20 24 Active vitamin D3 (CHOLECALCIFEROL) 1.25 mg capsuleIndication s:Vitamin D deficiency TAKE 1 CAPSULE BY MOUTH 1 TIME A WEEK FOR 12 DOSES 12 capsule 03/08/20 24 Active atorvastatin (LIPITOR) 20 MG tabletIndications :Dyslipidemia Take 1 tablet (20 mg total) by mouth nightly at bedtime. 90 tablet 1 04/23/20 24 Active fluticasone propionate (FLONASE) 50 MCG/ACT nasal sprayIndications: Acute MONIQUE (middle ear effusion), bilateral SHAKE LIQUID AND USE 1 SPRAY IN EACH NOSTRIL DAILY 15.8 mL 1 05/31/20 24 Active ondansetron (ZOFRAN-ODT) 8 MG disintegrating tabletIndications :Migraine without aura, not intractable, without status migrainosus Take 1 tablet (8 mg total) by mouth every 8 (eight) hours as needed for Nausea. 20 tablet 11 06/14/20 24 Active diclofenac sodium (VOLTAREN) 1 % gel Apply 4 g topically 4 (four) times daily. 100 g 06/30/19 25 Active HYDROcodone-aceta minophen (NORCO) 5-325 MG tabletIndications :Acute Pain < 3 Day Supply Take 1 tablet by mouth every 6 (six) hours as needed. Indications: Acute Pain < 3 Day Supply 10 tablet 06/30/19 25 Active Additional Information Patient not taking.Reported on 08/04/2024 erenumab-aooe (AIMOVIG) 140 mg/mL injection (autoinjector)Ind ications:Chronic migraine w/o aura w/o status migrainosus, not intractable Inject 1 mL (140 mg total) into the skin every 30 (thirty) days. 1 mL 6 07/06/19 25 Active metFORMIN (GLUCOPHAGE) 500 MG tabletIndications :Type 2 diabetes mellitus without complication, without long-term current use of insulin ([facility]) One tablet bid , please make an appt 180 tablet 07/28/19 25 Active solifenacin (VESICARE) 5 MG tablet Take 1 tablet (5 mg total) by mouth daily. 07/29/19 25 Active erenumab-aooe (AIMOVIG) 70 mg/mL injection (autoinjector)Ind ications:Chronic migraine w/o aura w/o status migrainosus, not intractable Inject 1 mL (70 mg total) into the skin every 30 (thirty) days. 1 mL 6 08/04/19 25 Active prochlorperazine (COMPAZINE) 25 MG suppositoryIndica tions:Chronic migraine w/o aura w/o status migrainosus, not intractable Place 1 suppository (25 mg total) rectally every 12 (twelve) hours as needed for Nausea. 12 suppository 11 08/04/19 25 Active amoxicillin-clavu lanate (AUGMENTIN) 500-125 MG tabletIndications :Infection of tonsil Take 1 tablet (500 mg of amoxicillin total) by mouth 2 (two) times a day for 10 days. 20 tablet 08/04/19 25 025 Hospital, Clinic, or Other Facility Administered Medication Ordered Dose Route Frequency Start Date End Date Status ondansetron (ZOFRAN) tablet 4 mgIndications:Nausea 4 mg OR Once 11/20/2023 Acti ve Active Problems Problem Noted Date Diagnosed Date Cervical radiculopathy 03/15/2024 New onset type 2 diabetes mellitus ([facility]/ [facility]) 01/02/2024 Chronic migraine without aura 10/14/2023 Dyslipidemia 09/15/2023 Overview (10/14/2023): Last Assessment & Plan: Abnormal lipid profile noted on her outside labs Discussed need for strict dietary and lifestyle modification as discussed under pre-diabetes Discussed statin therapy Patient not interested in statin but willing to trial dietary changes Advised re-check lipid profile with PCP in next 6 m Low vitamin D level 09/15/2023 Overview (10/14/2023): Last Assessment & Plan: Advised D3 5000 units daily Prediabetes 09/15/2023 Overview (10/14/2023): Last Assessment & Plan: Discussed lifestyle and dietary modifications given recent A1c Given written instruction on dietary modifications Advised exercise at least 30 min five times weekly Follow up A1c with her PCP Multiple thyroid nodules 02/23/2021 Trigger ring finger of right hand 01/24/2021 Overview (01/29/2021): Added automatically from request for surgery [id number] Neurapraxia of left lower extremity, 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 Cyclical vomiting with nausea 07/27/2018 Gastro-esophageal reflux disease without esophag itis 07/24/2015 Irritable bowel syndrome without diarrhea 2015 Overview (01/29/2021): Constipation predominate 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 Obesity 07/24/2015 Insomnia 08/31/2013 Arthralgia of ankle 07/09/2012 Pain of foot 06/11/2012 Resolved Problems Problem Noted Date Diagnosed Date Resolved Date Encounter for preventive health examination 08/11/2013 02/05/2021 Encounters Date Type Department Care Team Description 09/01/2024 2:55 PM CDT Emergency [facility] [place] [address] 09/01/2024 Travel 08/27/2024 Scan [facility] SRVCS Scanned, [facility] 08/05/2024 Telephone [facility] [place] [address], [address] [place] [phone] Sherman Cuevas, DO Lab Results (Magnesium, Thyroxine, BMP, TSH, Free T3, Vitamin B-12, Vitamin D) 08/04/2024 11:45 AM STRATEGY CONSULTANT - 08/04/2024 11:59 PM STRATEGY CONSULTANT Hospital Encounter [facility] [place] [address] Sherman Cuevas DO Discharge Disposition: Home or Self Care (Routine Discharge) 08/04/2024 11:30 AM STRATEGY CONSULTANT Office Visit [facility] [place] [address] Sangeetha Shelton APRN Follow Up (3 month) 08/04/2024 10:00 AM STRATEGY CONSULTANT Office Visit [facility] [place] [address], [address] [place] [phone] Sherman Cuevas DO Follow Up (Pt here for lab work follow up. Pt denies covid and flu vaccines. [facility] lab) 08/04/2024 Telephone [facility] [address], [address] [place] [phone] Sheramn Cuevas DO Refill Request 08/04/2024 Travel 07/29/2024 12:48 PM STRATEGY CONSULTANT - 07/29/2024 11:59 PM STRATEGY CONSULTANT Hospital Encounter [facility] [place] [address] Sherman Cuevas DO Discharge Disposition: Home or Self Care (Routine Discharge) 07/29/2024 Travel 07/06/2024 Telephone [facility] [address], [address] [place] [phone] Esvin Brown MD Prior Authorization (Aimovig 140mg/mL) 06/30/2024 4:33 PM STRATEGY CONSULTANT - 06/30/2024 5:49 PM STRATEGY CONSULTANT Emergency [facility] [place] [address] Denisa Steiner PA [place] Discharge Disposition: Home or Self Care (Routine Discharge) 06/30/2024 Travel 06/03/2024 Therapy Plan [facility] - [address], [address] [place] [address] Esvin Brown MD from Last 3 Months Immunizations Name Administration Dates Next Due Influenza (Generic) 04/29/2014,06/17/2013 Influenza Adult (Generic) 07/29/2014,06/17/2013 Pneumococcal (Pneumovax 23) 09/16/2013 Tdap (Adacel) 03/07/2021 Family History Medical History Relation Comments No Known Problems Brother 1 cardiac arrest Brother 3 premature Brother 3 volvulus of intestines Brother 3 Depression Father Heart Disease Father Hypertension Father NEUROLOGICAL DISEASE Father D/T AGENT O RANGE SEPSIS Father Stroke Father No Known Problems Maternal Aunt Sleep Apnea Maternal Grandmother cpap No Known Problems Maternal Uncle DVT Mother Depression Mother Diabetes Mother Heart Disease Mother Hypertension Mother Sleep Apnea Mother on cpap Stroke Mother No Known Problems Paternal Aunt Heart Attack Paternal Grandfather Stroke Paternal Grandmother No Known Problems Paternal Uncle No Known Problems Sister Relation Status Comments Brother 1 Brother 2 Alive Brother 3 (Age 3.5) Father (Age 67) Maternal Aunt Maternal Grandfather Maternal Grandmother Maternal Uncle Mother (Age 61) Paternal Aunt Paternal Grandfather Paternal Grandmother Paternal Uncle Sister Alive Social History Tobacco Use Types Packs/Day Years Used Date Smoking Tobacco: Former Cigarettes Passive Smoke Exposure: Past Smokeless Tobacco: Never Tobacco Cessation:Counseling Given: No Comments: Discretion Alcohol Use Standard Drinks/Week Comments Yes 0 (1 standard drink = 0.6 oz pur e alcohol) rare use PHQ-2 Answer Date Recorded Patient Health Questionnaire-2 Score 0 08/04/2024 Comments No Sex and Gender Information Value Date Recorded Sex Assigned at Female 06/30/2024 5:04 PM STRATEGY CONSULTANT Legal Sex Female 11:46 PM CDT Gender Identity Female 08/04/2024 9:52 AM STRATEGY CONSULTANT Sexual Orientation Not on file 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 Not on file Not on file No t on file Last Filed Vital Signs Vital [...] Mass Index 34.46 09/01/2024 2:59 PM CDT Plan of Treatment Upcoming Encounters Date Type Department Care Team (Late st Contact Info) Description 09/17/2024 3:30 PM CDT Appointment [facility] [place] [address] Davonte Marie FNP [address] [place] [address] 09/24/2024 9:40 AM CDT Office Visit [facility] [address], [address] [place] [address] Esvin Brown MD [address] [place] [address] Health Maintenance Due Date Last Done Comments Cervical Cancer Screening Pap Smear (Age 30 to 64) Every 3 Years 1964 Kidney Health Evaluation 1964 Annual Physical 12/07/1967 Cervical Cancer Screening Pap with HPV Testing (Age 30 to 64) Every 5 Years 1994 Cervical Cancer Screening with HPV 1994 Pneumococcal Vaccine: Pediatrics (0 to 5 Years) and At-Risk Patients (6 to 64 Years) (2 of 2 - PCV) 09/16/2014 09/16/2013 Zoster Vaccines (1 of 2) 2014 COVID-19 Vaccine ( season) 2024 Influenza Adult (#1) 2024 07/29/2014, 04/29/2014, 06/17/2013, Additional history exists Hemoglobin A1C 01/26/2025 07/29/2024, 12/14, 08/27/2023, Additional history exists Lipid Panel 07/29/2025 07/29/2024, 03/18, 08/27/2023, Additional history exists Diabetes: Retinopathy Eye Exam 12/22/2025 12/23/2023 Mammogram Screening 01/26/2026 01/27/2024, 03/05/2021, 02/08/2021, Additional history exists Colorectal Cancer Screening FIT-DNA (3 Years) 02/04/2027 02/05/2024, 02/05/2024 DTaP, Tdap and Td Vaccines (2 - Td or Tdap) 03/07/2031 03/07/2021 Hepatitis C Completed 04/14/2024 PHQ-2 (Physician [place]) Completed 08/04/2024 Meningococcal B Vaccine Aged Out No l onger eligible based on patient's age to complete this topic Meningococcal Vaccine Aged Out No gerald everardo eligible based on patient's age to complete this topic RSV Immunizations Under 20 Months Aged Out No longer eligible based on patient's age to complete this topic Procedures Procedure Name Priority Date/Time Associated Diagnosis Comments VITAMIN B-12 Routine 08/04/2024 11:52 AM STRATEGY CONSULTANT Gastroparesis THYROXINE, FREE (FT4) Routine 08/04/2024 11:52 AM STRATEGY CONSULTANT Multiple thyroid nodules VITAMIN D, 25 OH Routine 08/04/2024 11:5 2 AM STRATEGY CONSULTANT Vitamin D deficiency FREE T3 Routine 08/04/2024 11:52 AM STRATEGY CONSULTANT Multiple thyroid nodules MAGNESIUM Routine 08/04/2024 11:52 AM STRATEGY CONSULTANT Hypokalemia BASIC METABOLIC PANEL Routine 08/04/2024 11:52 AM STRATEGY CONSULTANT Hypokalemia TSH W/REFLEX Routine 08/04/2024 11:52 AM STRATEGY CONSULTANT Multiple thyroid nodules CBC W/DIFF AUTOMATED Routine 07/29/2024 1:10 PM STRATEGY CONSULTANT Type 2 diabetes mellitus without complication, without long-term current use of insulin ([facility]/HCC) Dyslipidemia COMPREHENSIVE METABOLIC PANEL Routine 07/29/2024 1:10 PM STRATEGY CONSULTANT Type 2 diabetes mellitus without complication, without long-term current use of insulin (CMS/HCC HHS/HCC) Dyslipidemia LIPID PANEL Routine 07/29/2024 1:10 PM STRATEGY CONSULTANT Type 2 diabetes mellitus without complication, without long-term current use of insulin (CMS/HCC HHS/HCC) Dyslipidemia HEMOGLOBIN, GLYCOSYLATED Routine 07/29/2024 1:10 PM STRATEGY CONSULTANT Type 2 diabetes mellitus without complication, without long-term current use of insulin ([facility] HHS/HCC) Dyslipidemia SPLINT APPLICATION Routine 07/01/2024 12 :[address] CERV SPINE WO CON STAT 06/30/2024 5:[address] HEAD WO CON STAT 06/30/2024 5:00 PM STRATEGY CONSULTANT XR KNEE+SUNRISE LT 3V STAT 06/30/2024 4:49 PM STRATEGY CONSULTANT HEPATITIS C ANTIBODY W/RFX TO HCV RNA Routine 04/14/2024 1:22 PM CDT COLOGUARD (EXACT SCIENCE) Routine 02/05/2024 8:00 AM CDT Screening for colon cancer MG SCREENING W RAND FIORELLA DIGI Routine 01/27/2024 11:01 AM CDT Screening mammogram for breast cancer DIABETIC RETINOPATHY EXAM (NEGATIVE)(SCAN ORDER) Routine 12/23/2023 from Last 3 Months or Most Recently Relevant to Health Maintenance Results * TSH W/REFLEX (08/04/2024 11:52 AM STRATEGY CONSULTANT) TSH 0.631 0.358 - 3.74 uIU/ML 08/04/2024 4:15 PM STRATEGY CONSULTANT [facility] Comment: HIGH DOSES OF BIOTIN MAY INTERFERE WITH THIS TEST RESULT. CORRELATION TO CLINICAL HISTORY AND PRESENTATION RECOMMENDED. FREE T4 NOT INDICATED 08/04/2024 11:5 2 AM STRATEGY CONSULTANT us Sherman Sree DO LABORATORY Final Result [facility] [address] [place] [address], [place] [phone] * VITAMIN B-12 (08/04/2024 11:52 AM STRATEGY CONSULTANT) VITAMIN B12 S/P/B 374 254 - 1,320 PG/ML 08/04/2024 12:56 PM STRATEGY CONSULTANT [facility] 08/04/2024 11:5 2 AM STRATEGY CONSULTANT us Sherman Sree DO LABORATORY Final Result Performing Organization Address City/[facility]/ZIP Co de Phone Number [facility] [address] [place] [address], [place] [phone] * FREE T3 (08/04/2024 11:52 AM STRATEGY CONSULTANT) FREE T3 2.4 2.18 - 3.98 PG/ML 08/04/2024 4:06 PM STRATEGY CONSULTANT [facility] 08/04/2024 11:5 2 AM STRATEGY CONSULTANT us Sherman Sree DO LABORATORY Final Result [facility] [address] [place] [address], [place] [phone] * (ABNORMAL) BASIC METABOLIC PANEL (08/04/2024 11:52 AM [facility]) [facility] GLUCOSE 105(H) 70 - 99 MG/DL 08/04/2024 4:15 PM [facility] BUN 16 7 - 18 MG/DL 08/04/2024 4:15 PM [facility] CREATININE S/P/B 0.92 0.55 - 1.02 MG/DL 08/04/2024 4:15 PM [facility] SODIUM S/P/B 138 136 - 145 MMOL/L 08/04/2024 4:15 PM [facility] POTASSIUM S/P/B 4.0 3.5 - 5.1 MMOL/L 08/04/2024 4:15 PM [facility] CHLORIDE S/P/B 106 97 - 115 MMOL/L 08/04/2024 4:15 PM [facility] CO2 26.6 21 - 32 MMOL/L 08/04/2024 4:15 PM [facility] CALCIUM S/P/B 9.2 8.5 - 10.1 MG/DL 08/04/2024 4:15 PM [facility] ANION GAP 5.4 2 - 10 MMOL/L 08/04/2024 4:15 PM [facility] BUN CREATININE RATIO 17.4 6 - 26 08/04/2024 4:15 PM [facility] GFR ESTIMATE 72(L) >90 ML/MIN/1.7 3 M2 08/04/2024 4:15 PM [facility] Comment: NOTE: eGFR is not calculated for patients <18 years of age or gender unknown. This is an estimated GFR calculation using the new CKD EPI creatinine equation without race and so does not require a correction factor for race. This estimated GFR should not be used for calculating drug doses. 08/04/2024 11:5 2 AM STRATEGY CONSULTANT Sherman Sree DO LABORATORY Final Result Performing Organization Address City/[facility]/ZIP Co de Phone Number [facility] [address] [place] [address], [place] [phone] * THYROXINE, FREE (FT4) (08/04/2024 11:52 AM STRATEGY CONSULTANT) Pathologist [facility] FREE T4 0.95 0.76 - 1.46 NG/DL 08/04/2024 4:15 PM STRATEGY CONSULTANT [facility] 08/04/2024 11:5 2 AM STRATEGY CONSULTANT Sherman Sree DO LABORATORY Final Result Performing Organization Address [facility] Co de Phone Number [facility] [address] [place] [address], [place] [phone] * VITAMIN D 25 OH (08/04/2024 11:52 AM STRATEGY CONSULTANT) [facility] VITAMIN D 25 HYDROXY S/P/B 55 30 - 100 NG/ML 08/04/2024 12:48 PM STRATEGY CONSULTANT [facility] Comment: INTERPRETATION DEFICIENT <20 INSUFFICIENT 20-29 SUFFICIENT 30-100 08/04/2024 11:5 2 AM STRATEGY CONSULTANT Sherman Sree DO LABORATORY Final Result Performing Organization Address City/[facility]/ZIP Co de Phone Number [facility] [address] [place] [address], [place] [phone] * MAGNESIUM (08/04/2024 11:52 AM STRATEGY CONSULTANT) Pathologist [facility] MAGNESIUM 2.0 1.8 - 2.4 MG/DL 08/04/2024 4:15 PM STRATEGY CONSULTANT [facility] 08/04/2024 11:5 2 AM STRATEGY CONSULTANT Sherman Sree DO LABORATORY Final Result Performing Organization Address [facility]/ZIP Co de Phone Number [facility] [address] [place] [address], [place] [phone] * (ABNORMAL) HEMOGLOBIN, GLYCOSYLATED (07/29/2024 1:10 PM STRATEGY CONSULTANT) HGB A1C 6.3(H) <5.7 % 07/29/2024 3:22 PM STRATEGY CONSULTANT [facility] Comment: ADA GUIDELINES 2010 5.7 TO 6.4% INCREASED RISK OF DIABETES > OR = 6.5% CONSISTENT WITH DIABETES ESTIMATED AVG GLUCOSE 134 mg/dL 07/29/2024 3:22 PM STRATEGY CONSULTANT [facility] 07/29/2024 1:10 PM STRATEGY CONSULTANT Sherman Sree DO LABORATORY Final Result Performing Organization Address [facility] Co de Phone Number [facility] [address] [place] [address], [place] [phone] * (ABNORMAL) COMPREHENSIVE METABOLIC PANEL (07/29/2024 1:10 PM STRATEGY CONSULTANT) GLUCOSE 94 70 - 99 MG/DL 07/29/2024 2:45 PM STRATEGY CONSULTANT [facility] BUN 16 7 - 18 MG/DL 07/29/2024 2:45 PM STRATEGY CONSULTANT [facility] CREATININE S/P/B 0.86 0.55 - 1.02 MG/DL 07/29/2024 2:45 PM STRATEGY CONSULTANT [facility] SODIUM S/P/B 136 136 - 145 MMOL/L 07/29/2024 2:45 PM [facility] POTASSIUM S/P/B 3.4(L) 3.5 - 5.1 MMOL/L 07/29/2024 2:45 PM [facility] CHLORIDE S/P/B 107 97 - 115 MMOL/L 07/29/2024 2:45 PM [facility] CO2 23.9 21 - 32 MMOL/L 07/29/2024 2:45 PM [facility] CALCIUM S/P/B 8.8 8.5 - 10.1 MG/DL 07/29/2024 2:45 PM [facility] BILIRUBIN TOTAL S/P/B 0.4 0.2 - 1.2 MG/DL 07/29/2024 2:45 PM [facility] Comment: THIS ASSAY IS NOT RECOMMENDED FOR PATIENTS UNDERGOING TREATMENT WITH ELTROMBOPAG DUE TO THE POTENTIAL FOR FALSELY ELEVATED RESULTS. TOTAL PROTEIN S/P/B 7.5 6.4 - 8.2 G/DL 07/29/2024 2:45 PM [facility] ALBUMIN S/P/B 3.3(L) 3.4 - 5.0 G/DL 07/29/2024 2:45 PM [facility] AST 15 15 - 37 U/L 07/29/2024 2:45 PM [facility] ALT 15 14 - 55 U/L 07/29/2024 2:45 PM [facility] ALKALINE PHOSPHATASE S/P/B 84 50 - 136 U/L 07/29/2024 2:45 PM [facility] ANION GAP 5.1 2 - 10 MMOL/L 07/29/2024 2:45 PM [facility] BUN CREATININE RATIO 18.7 6 - 26 07/29/2024 2:45 PM [facility] A/G RATIO 0.8(L) 1.0 - 2.0 RATIO 07/29/2024 2:45 PM STRATEGY CONSULTANT [facility] GFR ESTIMATE 78(L) >90 ML/MIN/1.7 3 M2 07/29/2024 2:45 PM STRATEGY CONSULTANT [facility] Comment: NOTE: eGFR is not calculated for patients <18 years of age or gender unknown. This is an estimated GFR calculation using the new CKD EPI creatinine equation without race and so does not require a correction factor for race. This estimated GFR should not be used for calculating drug doses. 07/29/2024 1:10 PM STRATEGY CONSULTANT us Sherman Sree DO LABORATORY Final Result [facility] [address] [place] [address], * LIPID PANEL (07/29/2024 1:10 PM STRATEGY CONSULTANT) CHOLESTEROL 125 <200 MG/DL 07/29/2024 2:45 PM STRATEGY CONSULTANT [facility] TRIGLYCERIDES 88 <150 MG/DL 07/29/2024 2:45 PM STRATEGY CONSULTANT [facility] HDL 41 >40.0 MG/DL 07/29/2024 2:45 PM STRATEGY CONSULTANT [facility] LDL (CALCULATED) 66 <100 MG/DL 07/29/19 25 2:45 PM STRATEGY CONSULTANT [facility] NON HDL CHOLESTEROL 84 <130 MG/DL 07/29 2:45 PM STRATEGY CONSULTANT [facility] CHOL/HDL RATIO 3.0 0.0 - 4.5 07/29/2024 2:45 PM STRATEGY CONSULTANT [facility] VLDL CALCULATION 18 5 - 55 MG/DL 07/29/2024 2:45 PM STRATEGY CONSULTANT [facility] LIPID INTERPRETATION 07/29/2024 2:45 PM STRATEGY CONSULTANT [facility] Comment: NIH CONCENSUS REPORT RECOMMENDATIONS: ADULT CHILD LOW RISK: CHOLESTEROL <200 <170 TRIGLYCERIDE <150 --- HDL >=60 --- LDL <100 <110 BORDERLINE: CHOLESTEROL 200-239 170-199 TRIGLYCERIDE 150-199 --- HDL 40-59 --- LDL 100-159 110-129 HIGH RISK: CHOLESTEROL >=240 >=200 TRIGLYCERIDE >=200 --- HDL <40 --- LDL >=160 >=130 07/29/2024 1:10 PM STRATEGY CONSULTANT us Sherman Sree DO LABORATORY Final Result [facility] [address] [place] [address], [place] [phone] * (ABNORMAL) CBC W/DIFF AUTOMATED (07/29/2024 1:10 PM STRATEGY CONSULTANT) WBC 11.18(H) 4.5 - 11.0 x10'3/uL 07/29/2024 2:30 PM STRATEGY CONSULTANT [facility] RBC 4.50 4.20 - 5.40 x10'6/uL 07/29/2024 2:30 PM STRATEGY CONSULTANT [facility] HGB 13.3 12.0 - 16.0 G/DL 07/29/2024 2:30 PM STRATEGY CONSULTANT [facility] HCT 40.4 38.0 - 48.0 % 07/29/2024 2:30 PM STRATEGY CONSULTANT [facility] MCV 89.8 81.0 - 99.0 FL 07/29/2024 2:30 PM STRATEGY CONSULTANT [facility] MCH 29.6 27.0 - 31.0 PG 07/29/2024 2:30 PM STRATEGY CONSULTANT [facility] MCHC 32.9 32.0 - 36.0 G/DL 07/29/2024 2:30 PM [facility] RDW 13.2 11.5 - 14.5 % 07/29/2024 2:30 PM STRATEGY CONSULTANT [facility] PLT 327 130 - 400 x10'3/uL 07/29/2024 2:30 PM [facility] MPV 10.3 9.3 - 12.2 FL 07/29/2024 2:30 PM [facility] DIFFERENTIAL TYPE AUTOMATED DIFFERENTIAL 07/29/2024 2:30 PM STRATEGY CONSULTANT [facility] NEUTROPHILS % 48.5 % 07/29/2024 2:30 PM [facility] LYMPHOCYTES % 43.5 % 07/29/2024 2:30 PM [facility] MONOCYTES % 6.4 % 07/29/2024 2:30 PM [facility] EOSINOPHILS 0.9 % 07/29/2024 2:30 PM [facility] BASOPHILS 0.4 % 07/29/2024 2:30 PM STRATEGY CONSULTANT [facility] IMMATURE GRANS % 0.3 % 07/29/19 2:30 PM [facility] ABS. NEUTROPHILS 5.43 1.80 - 7.70 x10'3/uL 07/29/2024 2:30 PM [facility] ABS. LYMPHOCYTES 4.86(H) 1.00 - 4.80 x10'3/uL 07/29/2024 2:30 PM STRATEGY CONSULTANT [facility] ABS. MONOCYTES 0.71 0.24 - 0.86 x10'3/uL 07/29/2024 2:30 PM [facility] ABS. EOSINOPHILS 0.10 0.04 - 0.36 x10'3/uL 07/29/2024 2:30 PM [facility] ABS. BASOPHILS 0.05 0.01 - 0.08 x10'3/uL 07/29/2024 2:30 PM STRATEGY CONSULTANT [facility] ABS. IMMATURE GRANULOCYTES 0.03 0.00 - 0.49 x10'3/uL 07/29/2024 2:30 PM STRATEGY CONSULTANT [facility] 07/29/2024 1:10 PM STRATEGY CONSULTANT Sherman Sree DO LABORATORY Final Result [facility] [address] [place] [address], * Splint Application (07/01/2024 12:03 AM STRATEGY CONSULTANT) Narrative Cr Patiño MD - 07/01/2024 12:03 AM STRATEGY CONSULTANT CHIKI Holland 07/01/2024 12:04 AM Splint Application Date/Time: 07/01/2024 12:03 AM Performed by: CHIKI Holland Authorized by: CHIKI Holland Consent: Consent obtained: Verbal Consent given by: Patient Risks discussed: Discoloration and numbness Pre-procedure details: Distal neurologic exam: Normal Distal perfusion: distal pulses strong Procedure details: Location: Knee Knee location: L knee Lower extremity splint type: knee brace. Supplies: Prefabricated splint Post-procedure details: Distal neurologic exam: Normal Distal perfusion: distal pulses strong Procedure completion: Tolerated Denisa MONET PROCEDURE/MINOR SURGICAL OR DERABLES Final Result * CT HEAD WO CON (06/30/2024 5:00 PM STRATEGY CONSULTANT) Anatomical Region Laterality Modality Head Computed Tomogra phy 06/30/2024 5:13 PM STRATEGY CONSULTANT Impressions 06/30/2024 5:18 PM STRATEGY CONSULTANT IMPRESSION: HEAD CT: 1. No definite CT evidence of acute intracranial abnormality, as above. 2. Possible mild small vessel disease. 3. Empty sella. CERVICAL SPINE CT: 1. No definite acute fractures identified in the cervical spine. 2. Degenerative changes. 3. Asymmetric prominence of the right palatine tonsil. Could correlate with direct visualization. 4. Bilateral thyroid nodules measuring up to 1.5 cm. Could further evaluate with follow-up thyroid ultrasound. Referred By: Interpreted By: Karan Lombardi MD, 06/30/2024 5:13 PM Narrative 06/30/2024 5:18 PM STRATEGY CONSULTANT [address] [address] EXAMINATION: CT of the head and CT cervical spine without contrast CLINICAL HISTORY: Head injury. Trauma. COMPARISON: Head CT 08/05/2023 TECHNIQUE: CT examinations of the head and cervical spine were performed without contrast, with axial and multiplanar reformatted images obtained. A dose lowering technique was used for this procedure, which may include, but is not limited to, dose reduction technique, automated exposure control, the use of iterative reconstruction, and ALARA (As Low As Reasonably Achievable) / Image Gently techniques. FINDINGS: HEAD CT: No acute intracranial hemorrhage, extra-axial collections, intracranial mass effect, or midline shift. Patchy foci of hypodensity suggested in the hemispheric white matter, probably due to small vessel disease. No definite CT evidence of acute territorial infarction, though MRI would be more sensitive. Empty sella. Ventricles and extra-axial/subarachnoid spaces are otherwise unremarkable. No depressed calvarial fractures. Mastoid air cells and paranasal sinuses clear. Visualized orbits unremarkable. CERVICAL SPINE CT: Slight anterolisthesis of C3 on C4. Slight rotation of C1 relative to C2. Otherwise the cervical vertebral alignment, vertebral body heights, and facet alignment are maintained. No definite acute fractures identified in the cervical spine. Multilevel degenerative changes are evident in the cervical spine with disc degeneration, endplate/uncovertebral osteophytes, and facet hypertrophy noted. Imaged portions of the neck soft tissues reveal asymmetric prominence of the right palatine tonsils. Bilateral tonsilloliths, more so on the right. Bilateral thyroid nodules measuring up to 1.5 cm on the right. Procedure Note [facility] Lombardi [facility] [address] [place], [place] [address] EXAMINATION: CT of the head and CT cervical spine without contrast CLINICAL HISTORY: Head injury. Trauma. COMPARISON: Head CT 08/05/2023 TECHNIQUE: CT examinations of the head and cervical spine were performedwithout contrast, with axial and multiplanar reformatted imagesobtained. A dose lowering technique was used for this procedure, which may include,but is not limited to, dose reduction technique, automated exposurecontrol, the use of iterative reconstruction, and ALARA (As Low AsReasonably Achievable) / Image Gently techniques. FINDINGS: HEAD CT: No acute intracranial hemorrhage, extra-axial collections, intracranialmass effect, or midline shift. Patchy foci of hypodensity suggested in thehemispheric white matter, probably due to small vessel disease. Nodefinite CT evidence of acute territorial infarction, though MRI would bemore sensitive. Empty sella. Ventricles and extra-axial/subarachnoidspaces are otherwise unremarkable. No depressed calvarial fractures.Mastoid air cells and paranasal sinuses clear. Visualized orbitsunremarkable. CERVICAL SPINE CT: Slight anterolisthesis of C3 on C4. Slight rotation of C1 relative to C2.Otherwise the cervical vertebral alignment, vertebral body heights, andfacet alignment are maintained. No definite acute fractures identified inthe cervical spine. Multilevel degenerative changes are evident in thecervical spine with disc degeneration, endplate/uncovertebral osteophytes,and facet hypertrophy noted. Imaged portions of the neck soft tissuesreveal asymmetric prominence of the right palatine tonsils. Bilateraltonsilloliths, more so on the right. Bilateral thyroid nodules measuringup to 1.5 cm on the right. IMPRESSION: HEAD CT: 1. No definite CT evidence of acute intracranial abnormality, as above. 2. Possible mild small vessel disease. 3. Empty sella. CERVICAL SPINE CT: 1. No definite acute fractures identified in the cervical spine. 2. Degenerative changes. 3. Asymmetric prominence of the right palatine tonsil. Could correlatewith direct visualization. 4. Bilateral thyroid nodules measuring up to 1.5 cm. Could furtherevaluate with follow-up thyroid ultrasound. Referred By: Interpreted By: Karan Lombardi MD, 06/30/2024 5:13 PM us Denisa MONET CT Final Resul t * CT CERV SPINE WO CON (06/30/2024 5:00 PM STRATEGY CONSULTANT) Anatomical Region Laterality Modality Spine Computed Tomogra phy 06/30/2024 5:13 PM STRATEGY CONSULTANT Impressions 06/30/2024 5:18 PM STRATEGY CONSULTANT IMPRESSION: HEAD CT: 1. No definite CT evidence of acute intracranial abnormality, as above. 2. Possible mild small vessel disease. 3. Empty sella. CERVICAL SPINE CT: 1. No definite acute fractures identified in the cervical spine. 2. Degenerative changes. 3. Asymmetric prominence of the right palatine tonsil. Could correlate with direct visualization. 4. Bilateral thyroid nodules measuring up to 1.5 cm. Could further evaluate with follow-up thyroid ultrasound. Referred By: Interpreted By: Karan Lombardi MD, 06/30/2024 5:13 PM Narrative 06/30/2024 5:18 PM STRATEGY CONSULTANT [place] [address] EXAMINATION: CT of the head and CT cervical spine without contrast CLINICAL HISTORY: Head injury. Trauma. COMPARISON: Head CT 08/05/2023 TECHNIQUE: CT examinations of the head and cervical spine were performed without contrast, with axial and multiplanar reformatted images obtained. A dose lowering technique was used for this procedure, which may include, but is not limited to, dose reduction technique, automated exposure control, the use of iterative reconstruction, and ALARA (As Low As Reasonably Achievable) / Image Gently techniques. FINDINGS: HEAD CT: No acute intracranial hemorrhage, extra-axial collections, intracranial mass effect, or midline shift. Patchy foci of hypodensity suggested in the hemispheric white matter, probably due to small vessel disease. No definite CT evidence of acute territorial infarction, though MRI would be more sensitive. Empty sella. Ventricles and extra-axial/subarachnoid spaces are otherwise unremarkable. No depressed calvarial fractures. Mastoid air cells and paranasal sinuses clear. Visualized orbits unremarkable. CERVICAL SPINE CT: Slight anterolisthesis of C3 on C4. Slight rotation of C1 relative to C2. Otherwise the cervical vertebral alignment, vertebral body heights, and facet alignment are maintained. No definite acute fractures identified in the cervical spine. Multilevel degenerative changes are evident in the cervical spine with disc degeneration, endplate/uncovertebral osteophytes, and facet hypertrophy noted. Imaged portions of the neck soft tissues reveal asymmetric prominence of the right palatine tonsils. Bilateral tonsilloliths, more so on the right. Bilateral thyroid nodules measuring up to 1.5 cm on the right. Procedure Note Karan Lombardi MD - 06/30/[address] [address] EXAMINATION: CT of the head and CT cervical spine without contrast CLINICAL HISTORY: Head injury. Trauma. COMPARISON: Head CT 08/05/2023 TECHNIQUE: CT examinations of the head and cervical spine were performedwithout contrast, with axial and multiplanar reformatted imagesobtained. A dose lowering technique was used for this procedure, which may include,but is not limited to, dose reduction technique, automated exposurecontrol, the use of iterative reconstruction, and ALARA (As Low AsReasonably Achievable) / Image Gently techniques. FINDINGS: HEAD CT: No acute intracranial hemorrhage, extra-axial collections, intracranialmass effect, or midline shift. Patchy foci of hypodensity suggested in thehemispheric white matter, probably due to small vessel disease. Nodefinite CT evidence of acute territorial infarction, though MRI would bemore sensitive. Empty sella. Ventricles and extra-axial/subarachnoidspaces are otherwise unremarkable. No depressed calvarial fractures.Mastoid air cells and paranasal sinuses clear. Visualized orbitsunremarkable. CERVICAL SPINE CT: Slight anterolisthesis of C3 on C4. Slight rotation of C1 relative to C2.Otherwise the cervical vertebral alignment, vertebral body heights, andfacet alignment are maintained. No definite acute fractures identified inthe cervical spine. Multilevel degenerative changes are evident in thecervical spine with disc degeneration, endplate/uncovertebral osteophytes,and facet hypertrophy noted. Imaged portions of the neck soft tissuesreveal asymmetric prominence of the right palatine tonsils. Bilateraltonsilloliths, more so on the right. Bilateral thyroid nodules measuringup to 1.5 cm on the right. IMPRESSION: HEAD CT: 1. No definite CT evidence of acute intracranial abnormality, as above. 2. Possible mild small vessel disease. 3. Empty sella. CERVICAL SPINE CT: 1. No definite acute fractures identified in the cervical spine. 2. Degenerative changes. 3. Asymmetric prominence of the right palatine tonsil. Could correlatewith direct visualization. 4. Bilateral thyroid nodules measuring up to 1.5 cm. Could furtherevaluate with follow-up thyroid ultrasound. Referred By: Interpreted By: Karan Lombardi MD, 06/30/2024 5:[address] CT Final Resul t * XR KNEE+SUNRISE LT 3V (06/30/2024 4:49 PM STRATEGY CONSULTANT) Anatomical Region Laterality Modality Knee Radiographic Olga ging 06/30/2024 4:51 PM STRATEGY CONSULTANT Impressions 06/30/2024 4:53 PM STRATEGY CONSULTANT =====IMPRESSION:===== 1. No left knee injury or other acute radiographic finding. 2. 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 No hardware complication seen Ordered By: DENISA STEINER Interpreted By: Kymberly Handley MD, 06/30/2024 4:51 PM Narrative 06/30/2024 4:53 PM STRATEGY CONSULTANT [address] [address] Examination: Left knee 3 views Exam date/time: 06/30/2024 4:34 PM Reason For Exam: 58 female. Left knee pain following a fall on ice. History of left total knee arthroplasty Comparison: Left knee radiographs 11/29/2020 Views: AP, lateral, and patellar sunrise views of the left knee were obtained Findings: No fracture or dislocation injury identified. No joint effusion. Stable left total knee cemented arthroplasty changes. Hardware is intact and normally aligned. Cement bone interface appears normal. No periprostatic lucency suggesting loosening. Background normal bone density. Soft tissues are radiographically unremarkable. Procedure Note Kymberly Handley MD - 06/30/[address] [address] Examination: Left knee 3 views Exam date/time: 06/30/2024 4:34 PM Reason For Exam: 58 female. Left knee pain following a fall on ice.History of left total knee arthroplasty Comparison: Left knee radiographs 11/29/2020 Views: AP, lateral, and patellar sunrise views of the left knee wereobtained Findings: No fracture or dislocation injury identified. No joint effusion. Stable left total knee cemented arthroplasty changes. Hardware is intactand normally aligned. Cement bone interface appears normal. Noperiprostatic lucency suggesting loosening. Background normal bone density. Soft tissues are radiographically unremarkable. =====IMPRESSION:===== 1. No left knee injury or other acute radiographic finding. 2. Stable radiographic appearance of the left knee total cementedarthroplasty. No hardware complication seen Ordered By: DENISA STEINER Interpreted By: Kymberly Handley MD, 06/30/2024 4:51 PM Denisa Steiner MD GENERAL IMAGING Final Resul t * HEPATITIS C ANTIBODY W/RFX TO HCV RNA (04/14/2024 1:22 PM CDT) HEPATITIS C AB NON-REACT MISA NON-REACT MISA [employer] [facility] Comment: HCV antibody was non-reactive. There is no laboratory evidence of HCV infection. In most cases, no further action is required. However, if recent HCV exposure is suspected, a test for HCV RNA (test code 30078) is suggested. For additional information please refer to http://education.Miproto.globa.ly/faq/DWF19c7 (This link is being provided for informational/ educational purposes only.) 04/14/2024 1:22 PM CDT 04/14/2024 1:27 PM CDT Narrative Resulting Agency Comment Performing Organization Information: Site ID: [id number] Name: [facility] [facility] Address: [address] [id number] Director: Jenna Reed MD us Sherman Sree DO LABORATORY Final Result [facility] [employer] [facility] [address] [place] [address], * COLOGUARD (Position[employer] SCIENCE) (02/05/2024 8:00 AM CDT) COLOGUARD RESULT Negative Negative [employer] (CLIA #:[id number]) Comment: NEGATIVE TEST RESULT. A negative Cologuard result indicates a low likelihood that a colorectal cancer (CRC) or advanced adenoma (adenomatous polyps with more advanced pre-malignant features) is present. The chance that a person with a negative Cologuard test has a colorectal cancer is less than 1 in 1500 (negative predictive value >99.9%) or has an advanced adenoma is less than 5.3% (negative predictive value 94.7%). These data are based on a prospective cross-sectional study of 10,000 individuals at average risk for colorectal cancer who were screened with both Cologuard and colonoscopy. (Zacarias Meadows et al, N Engl J Med 2014;370(14):4765-7199) The normal value (reference range) for this assay is negative. COLOGUARD RE-SCREENING RECOMMENDATION: Periodic colorectal cancer screening is an important part of preventive healthcare for asymptomatic individuals at average risk for colorectal cancer. Following a negative Cologuard result, the [place] [employer] and U.S. Multi-Society Task Force screening guidelines recommend a Cologuard re-screening interval of 3 years. References: [place] [employer] Guideline for Colorectal Cancer Screening: https://www.cancer.org/cancer/wdnzr-pimicj-hfayxy/pdjsirbwg-hetgpgrwi-sounqtx/ac s-rec ommendations.html.; Liu ANTHONY Zafar WILLETT, [place] MazaK, Colorectal Cancer Screening: Recommendations for Physicians and Patients from the U.S. Multi-Society Task Force on Colorectal Cancer Screening , Am J Gastroenterology 2017; 112:1945-7251. TEST DESCRIPTION: Composite algorithmic analysis of stool DNA-biomarkers with hemoglobin immunoassay. Quantitative values of individual biomarkers are not reportable and are not associated with individual biomarker result reference ranges. Cologuard is intended for colorectal cancer screening of adults of either sex, 45 years or older, who are at average-risk for colorectal cancer (CRC). Cologuard has been approved for use by the U.S. FDA. The performance of Cologuard was established in a cross sectional study of average-risk adults aged 50-84. Cologuard performance in patients ages 45 to 49 years was estimated by sub-group analysis of near-age groups. Colonoscopies performed for a positive result may find as the most clinically significant lesion: colorectal cancer [4.0%], advanced adenoma (including sessile serrated polyps greater than or equal to 1cm diameter) [20%] or non- advanced adenoma [31%]; or no colorectal neoplasia [45%]. These estimates are derived from a prospective cross-sectional screening study of 10,000 individuals at average risk for colorectal cancer who were screened with both Cologuard and colonoscopy. (Zacarias Bee al, N Engl J Med 2014;370(14):3873-5553.) Cologuard may produce a false negative or false positive result (no colorectal cancer or precancerous polyp present at colonoscopy follow up). A negative Cologuard test result does not guarantee the absence of CRC or advanced adenoma (pre-cancer). The current Cologuard screening interval is every 3 years. ([place] [employer] and U.S. Multi-Society Task Force). Cologuard performance data in a 10,000 patient pivotal study using colonoscopy as the reference method can be accessed at the following location: www.amiando.globa.ly/results. Additional description of the Cologuard test process, warnings and precautions can be found at www.PlaxoogDB3 Mobilerd.com. STOOL STOOL SPECIMEN / Unknown 02/05/2024 8:00 AM CDT 02/07/2024 10:56 AM CDT Sherman Sree DO BODY FLUIDS AND STOOLS ORDERABL ES Final Result [employer] [address] [place] [address], [employer] (CLIA #:[id number]) [address] [place] [address] * MG SCREENING W RAND FIORELLA DIGI (01/27/2024 11:01 AM CDT) Anatomical Region Laterality Modality Breast Bilateral Mammography 01/27/2024 12:2 0 PM CDT Impressions 01/27/2024 12:23 PM CDT ===== IMPRESSION: ===== 1. Stable mammographic appearance with no new findings to suggest malignancy in either breast. Assessment: ACR BI-RADS 1 - NEGATIVE Recommendation: 1:Routine Screening Bilateral Comments: Ordered By: SHERMAN CUEVAS Interpreted By: Inderjit Gonzales, 01/27/2024 12:20 PM Narrative 01/27/2024 12:23 PM CDT EXAMINATION: Digital bilateral screening mammogram with 3-D tomosynthesis EXAM DATE/TIME: 01/27/2024 10:47 AM REASON FOR EXAM: screening mammogram COMPARISON: 02/08/2021.. 03/05/2021 Technique: Digital screening mammography of both breasts was performed in addition to 3-D Tomosynthesis technique. This study was read with the assistance of a computer-aided detection system. Tissue density: There are scattered areas of fibroglandular density. Findings: There is no new focal asymmetry, dominant mass lesion, area of skin thickening, or cluster of suspicious appearing calcifications in either breast to suggest malignancy. us Sherman Sree DO MAMMO Final Result * DIABETIC RETINOPATHY EXAM (NEGATIVE) (12/23/2023) us [facility] Scanned SCANNING Final Resu lt [facility] ONBASE from Last 3 Months or Most Recently Relevant to Health Maintenance Insurance [employer] Advance Directives Documents on File Type Date Recorded Patient Family Service Center Director Expl anation Advance Directives and Living Will 02/10/2020 11:58 AM 10/12/13 HEALTH CARE POA Advance Directives and Living Will 09/15/2013 12:00 AM POWER OF BROWNELL OPERATOR FO R HEALTH CARE Advance Directives and Living Will 09/15/2013 12:00 AM POWER OF BROWNELL OPERATOR FO R HEALTH CARE Advance Directives and Living Will 09/15/2013 12:00 AM POWER OF BROWNELL OPERATOR FO R HEALTH CARE Care Teams Airborne Operations Superintendent Relationship Specialty Start Date End Date Sherman Cuevas DO [address] [place] [id number] PCP - General FAMILY PRACTICE 01/29/21
--- OUTSIDE RECORDS SUMMARY | 2024-09-01 16:15 | XMS_ITS | Encounter Summary ---
Author Organization [facility] Address [facility] [place] [address] Care Team Providers Care Laborer Wood Preserving Plant Name Role Phone Dalia Balbuena Primary Care Provider [phone] Encounter Details Date Type Department Care Team (Latest Contact Info) Description 11/21/2023 MyCPrism Skylabst Message Enc [facility] - [facility] [address] [facility], [address] [place] [phone] Esvin Brown MD [address] [place] [address] Muscles feeling like jello Social [...] Sex Assigned at Female 06/30/2024 5:04 PM CHANNEL MACHINE OPERATOR Legal Sex Female 11:46 PM CDT Gender Identity Female 08/04/2024 9:52 AM CHANNEL MACHINE OPERATOR Sexual Orientation Not on file documented as of this encounter Plan of Treatment Upcoming Encounters Date Type Department Care Team (Late st Contact Info) Description 09/17/2024 3:[address] [facility] [place] [address] Davonte Marie FNP [address] [place] [address] 09/24/2024 9:40 AM CDT Office Visit [facility] - [facility] [address] [place] [address] Esvin Brown MD [address] [place] [address] documented as of this encounter Visit Diagnoses Not on filedocumented in this encounter Additional Health Concerns Assessment Noted Time PHQ-9 Depression Total Score: 9 08/25/19 24 2:37 PM CDT documented as of this encounter Care Teams Laborer Wood Preserving Plant Relationship Specialty Start Date End Date Dalia Balbuena DO [address] [place] [address] PCP - General FAMILY PRACTICE 01/29/21 documented as of this encounter
--- OUTSIDE RECORDS SUMMARY | 2024-09-01 16:15 | XMS_ITS | Encounter Summary ---
Author Organization [facility] Address [address] [place] [address] Care Team Providers Care Sheet Metal Shop Helper Name Role Phone Kali Miramontes MD Primary Care Provider None, Provider Primary Care Provider Unavaila ble None, Provider Primary Care Provider Unavaila ble Sree, Dalia DO Primary Care Provider [phone] Encounter Details Date Type Department Care Team (Late st Contact Info) Description 11/21/2018 Abstract [facility] CONVERSION [address] [place], [place] [id number] , Generic Conversion, Social History Tobacco Use Types Packs/Day Years Used Date Smoking Tobacco: Never Smokeless Tobacco: Never Alcohol Use Standard Drinks/Week Comments No 0 (1 standard drink = 0.6 oz pur e alcohol) Comments No Sex and Gender Information Value Date Recorded Sex Assigned at Female 06/30/2024 5:04 PM PYROTECHNICS PRESS TENDER Legal Sex Female 11:46 PM CDT Gender Identity Female 08/04/2024 9:52 AM PYROTECHNICS PRESS TENDER Sexual Orientation Not on file documented as of this encounter Plan of Treatment Upcoming Encounters Date Type Department Care Team (Late Contact Info) Description 09/17/2024 3:30 PM CDT Appointment [place] [address] Davonte Marie, JUKEBOX COIN COLLECTOR [address] [place] [address] 09/24/2024 9:40 AM CDT Office Visit [facility] Medical Group Multispecialty Care - [facility] [address] [facility], [address] [place] [address] Esvin Brown MD [address] [place] [address] documented as of this encounter Visit Diagnoses Not on filedocumented in this encounter Additional Health Concerns Infection Onset Date Last Indicated Resolved Time COVID-19 Rule Out 04/29/2020 04/29/2020 04/30/2020 7:16 PM PYROTECHNICS PRESS TENDER documented as of this encounter Care Teams Sheet Metal Shop Helper Relationship Specialty Start Date End Date Kali Miramontes MD PCP - General 05/05/16 08/02/20 None, ProviderMD PCP - General 08/03/20 11/30/20 None, Provider, PCP - General 12/01/20 01/28/21 Dalia Balbuena DO [address] [place] [address] PCP - General FAMILY PRACTICE 01/29/21 documented as of this encounter
--- OUTSIDE RECORDS SUMMARY | 2024-09-01 16:15 | XMS_ITS | Clinical Summary ---
Author Organization [facility] [employer] Address [address] [place] [address] Care Team Providers Care Blackjack Dealer Name Role Phone Dalia Balbuena DO Primary Care Provider [phone] Dalia Balbuena DO Unavailable [phone] Rashel Hui MD Unavailable [phone] Esvin Brown MD Unavailable [phone] Allergies Active Allergy Reactions Criticality Noted Date [...] 02/18/2024 Assessment & Plan (04/19/2024 11:43 AM DOOR FRAMER): The patient is presenting for follow up [...] (01/24/2021): Added automatically from request for surgery [id number] Arthralgia of ankle 07/09/2012 Pain of foot 07/01/2012 Resolved Problems Problem Noted Date Diagnosed Date Resolved Date Arthralgia of hip 06/11/2012 02/18/2024 Encounters Date Type Department Care Team Description 08/13/2024 Orders Only [facility] Health Information Management [address] [place] [address] Scanning, Provider from Last 3 Months Immunizations Immunization Administration Dates Next Due Influenza, Quadrivalent, Spl it, Preservative Free, Intramuscular 07/29/2014 Influenza, Trivalent, IM (MDV) 06/17/2013 Influenza, Unspecified 04/29/2014 Pneumococcal Polysaccharide PPV23 09/16/2013 Surgical History Surgery Date Site/Laterality Comments KNEE SURGERY Knee Surgery Left - (Added by TW Conv) HI EXPLORATORY LAPAROTOMY CELIOTOMY W/WO BIOPSY SPX Exploratory Laparotomy - (Added by TW Conv) HI LIG/TRNSXJ FLP TUBE ABDL/VAG APPR UNI/BI Tubal [...] on file Legal Sex Female 10:51 PM DOOR FRAMER Gender Identity Not on file Sexual Orientation Not on file Obstetrics History Last Filed Vital Signs Vital Sign Reading Time Taken Comments Blood Pressure 100/56 04/19/2024 10:33 AM DOOR FRAMER Pulse 98 04/19/2024 10:33 AM DOOR FRAMER Temperature 36.3 C (97.3 F) 04/19/2024 10:33 AM DOOR FRAMER Respiratory Rate 17 02/23/2021 10:2 7 AM CDT Oxygen Saturation 95% 04/19/2024 10: 33 AM DOOR FRAMER Inhaled Oxygen Concentration - - Weight 99.7 kg (219 lb 12.8 oz) 024 10:33 AM DOOR FRAMER Height 170.2 cm (5' 7 ) 04/19/2024 10:3 3 AM DOOR FRAMER Body Mass Index 34.43 04/19/2024 10:33 AM DOOR FRAMER Plan of Treatment Health Maintenance Due Date [...] WITH LIPID PANEL Routine 07/27/2014 1:41 AM DOOR FRAMER SCREENING MAMMOGRAM 2D BILATERAL Routine 03/30/2014 7:50 [...] MD LAB BLOOD ORDERABLES Final Result [facility] [address] Department [place] [address] * TNI with LIPID PANEL (07/27/2014 1:41 AM DOOR FRAMER) Troponin I < 0.300 0.000 - 0.300 ng/mL 07/27/2014 2:27 AM [employer] HISTORICAL RESULTS Comment: Reference using KRISTI Chemiluminescence Negative: Repeat in 4-6 hours as indicated. Triglycerides 131 0 - 199 mg/dL 07/27/2014 2:29 AM [employer] HISTORICAL RESULTS Comment:12 hr pc highly kevin mmended for Triglyceride Cholesterol 192 0 - 199 mg/dL 07/27/2014 2:31 AM [employer] HISTORICAL RESULTS Comment: Borderline: 200-239 High Risk: >239 HDL Cholesterol 42 40 - 60 mg/dL 07/27/2014 2:29 AM [employer] HISTORICAL RESULTS Comment: Major Risk < 40 mg/dL Moderate Risk 40-60 mg/dL Negative Risk > 60 mg/dL LDL Cholesterol, Calc 124 0 - 130 mg/dL Comment:High Risk > 159 mg/d L Cholesterol/HDL Ratio 4.6 Comment: Cholesterol / HDL Ratio 3.5:1 or less is desirable. Cholesterol / HDL Ratio greater than 5:1 is considered higher risk for developing heart disease. 07/27/2014 1:41 AM DOOR FRAMER 07/27/2014 1:43 AM DOOR FRAMER us Jimmy Back MD LAB BLOOD ORDERABLES Fin al Result [facility] HISTORICAL RESULTS * Screening Mammogram 2D Bilateral [...] NEGATIVE. The patient will be entered into [employer] system for an annual screening mammogram in 1 year. THIS IS AN ELECTRONICALLY VERIFIED REPORT 03/30/2014 9:13 AM: Isreal Tripathi M.D. Isreal Tripathi M.D. NH:alexandru 09:13 AM 09:13 AM [facility] [EOD] Una MONET IMG MAMMO PROCEDURES Final Result from Last 3 Months or Most Recently Relevant to Health Maintenance Insurance [employer] O[employer]OS [place] [employer] OOS Care Teams Blackjack Dealer Relationship Specialty Start Date End Date Dalia Balbuena DO PCP - General Family Medicine 02/16/21 Dalia Balbuena DO [address] [id number] Family Medicine 02/16/21 Rashel Hui MD [address] [address] Consulting Physician Plastic Surgery 02/02/21 Esvin Brown MD [address] [place] [address] Referring Physician Neurology 12/14/23
--- OUTSIDE RECORDS SUMMARY | 2024-09-01 16:15 | XMS_ITS | Referral Summary ---
Author Organization [facility] [address] [employer] Address [address] [place] [address] Care Team Providers Care Documentation Billing Clerk Name Role Phone Dalia Balbuena DO Primary Care Provider [phone] Dalia Balbuena DO Unavailable [phone] Rashel Hui MD Unavailable [phone] Esvin Brown MD Unavailable [phone] Encounters Date Type Department Care Team Description 08/13/2024 Orders Only Health Information Management 1 [place] [address] Scanning, Provider from Last 3 Months Allergies [...] 02/18/2024 Assessment & Plan (04/19/2024 11:43 AM ELECTRIC MOTOR TESTER): The patient is presenting for follow up [...] (01/24/2021): Added automatically from request for surgery [id number] Arthralgia of ankle 07/09/2012 Pain of foot [...] on file Legal Sex Female 10:51 PM ELECTRIC MOTOR TESTER Gender Identity Not on file Sexual Orientation Not on file Last Filed Vital Signs Vital Sign Reading Time Taken Comments Blood Pressure 100/56 04/19/2024 10:33 AM ELECTRIC MOTOR TESTER Pulse 98 04/19/2024 10:33 AM ELECTRIC MOTOR TESTER Temperature 36.3 C (97.3 F) 04/19/2024 10:33 AM ELECTRIC MOTOR TESTER Respiratory Rate 17 02/23/2021 10:2 7 AM CDT Oxygen Saturation 95% 04/19/2024 10: 33 AM ELECTRIC MOTOR TESTER Inhaled Oxygen Concentration - - Weight 99.7 kg (219 lb 12.8 oz) 024 10:33 AM ELECTRIC MOTOR TESTER Height 170.2 cm (5' 7 ) 04/19/2024 10:3 3 AM ELECTRIC MOTOR TESTER Body Mass Index 34.43 04/19/2024 10:33 AM ELECTRIC MOTOR TESTER Plan of Treatment Not on file Procedures Procedure Name Priority Date/Time Associated Diagnosis Comments SCAN - OTHER ORDERS 08/13/2024 EGFR Routine 02/18/2024 3:15 PM CDT Generalized pain TNI WITH LIPID PANEL Routine 07/27/2014 1:41 AM ELECTRIC MOTOR TESTER SCREENING MAMMOGRAM 2D BILATERAL Routine 03/30/2014 7:50 [...] MD LAB BLOOD ORDERABLES Final Result [facility] [address] Department [place] [address] * TNI with LIPID PANEL (07/27/2014 1:41 AM ELECTRIC MOTOR TESTER) Troponin I < 0.300 0.000 - 0.300 ng/mL 07/27/2014 2:27 AM [employer] HISTORICAL RESULTS Comment: Reference using KRISTI Chemiluminescence Negative: Repeat in 4-6 hours as indicated. Triglycerides 131 0 - 199 mg/dL 07/27/2014 2:29 AM [employer] HISTORICAL RESULTS Comment:12 hr pc highly kevin mmended for Triglyceride Cholesterol 192 0 - 199 mg/dL 07/27/2014 2:31 AM [employer] HISTORICAL RESULTS Comment: Borderline: 200-239 High Risk: >239 HDL Cholesterol 42 40 - 60 mg/dL 07/27/2014 2:29 AM [employer] HISTORICAL RESULTS Comment: Major Risk < 40 mg/dL Moderate Risk 40-60 mg/dL Negative Risk > 60 mg/dL LDL Cholesterol, Calc 124 0 - 130 mg/dL 07/27/2014 2:31 AM [employer] HISTORICAL RESULTS Comment:High Risk > 159 mg/d L Cholesterol/HDL Ratio 4.6 07/27/2014 2:31 AM ELECTRIC MOTOR TESTER [facility] HISTORICAL RESULTS Comment: Cholesterol / HDL Ratio 3.5:1 or less is desirable. Cholesterol / HDL Ratio greater than 5:1 is considered higher risk for developing heart disease. 07/27/2014 1:41 AM ELECTRIC MOTOR TESTER 07/27/2014 1:43 AM ELECTRIC MOTOR TESTER us Jimmy Back MD LAB BLOOD ORDERABLES Fin al Result [facility] HISTORICAL RESULTS * Screening Mammogram 2D Bilateral [...] AM: Isreal Tripathi M.D. Isreal Tripathi M.D. NH:ri 09:13 AM 09:13 AM [facility] [EOD] Narrative 03/30/2014 9:16 AM CDT EXAMINATION: [...] NEGATIVE. The patient will be entered into [employer] system for an annual screening mammogram in 1 year. THIS IS AN ELECTRONICALLY VERIFIED REPORT 03/30/2014 9:13 AM: Isreal Tripathi M.D. Isreal Tripathi M.D. NH:ri 09:13 AM 09:13 AM [facility] [EOD] Una MONET IMG MAMMO PROCEDURES Final Result from Last 3 Months or Most Recently Relevant to Health Maintenance Insurance [employer] OOS [facility] Address: [facility] [id number] [place] [address] [employer] O[employer] [place] [employer] O[employer] Care Teams Documentation Billing Clerk Relationship Specialty Start Date End Date Dalia Balbuena DO PCP - General Family Medicine 02/16/21 Dalia Balbuena DO [address] [id number] Family Medicine 02/16/21 Rashel Hui MD [address] [address] Consulting Physician Plastic Surgery 02/02/21 Esvin Brown MD [address] [place], [place] [id number] Referring Physician Neurology 12/14/23
--- OUTSIDE RECORDS SUMMARY | 2024-09-01 16:15 | XMS_ITS | Encounter Summary ---
Author Organization [facility] Address [address] [place] [address] Care Team Providers Care Fleet Mechanic Name Role Phone Dalia Balbuena DO Primary Care Provider [phone] Encounter Details Date Type Department Care Team (Late st Contact Info) Description 03/10/2024 MyCDivXt Message Enc [facility] Medical Group Family Medicine - [place] [address] [facility], [address] [place] [address] Dalia Balbuena DO [address] [place] [address] Urinary Social History Tobacco Use [...] Sex Assigned at Female 06/30/2024 5:04 PM LINE CONSTRUCTION SUPERINTENDENT Legal Sex Female 11:46 PM CDT Gender Identity Female 08/04/2024 9:52 AM LINE CONSTRUCTION SUPERINTENDENT Sexual Orientation Not on file documented as of this encounter Plan of Treatment Upcoming Encounters Date Type Department Care Team (Late st Contact Info) Description 09/17/2024 3:30 PM CDT [place] [address] Davonte Marie FNP [address] [place] [address] 09/24/2024 9:40 AM CDT Office Visit [facility] Medical Group Multispecialty Care - [place] [address] [place] [address] Esvin Brown MD [address] [place] [address] documented as of this encounter Visit Diagnoses Not on filedocumented in this encounter Additional Health Concerns Assessment Noted Time PHQ-9 Depression Total Score: 0 03/08/20 24 1:57 PM CDT documented as of this encounter Care Teams Fleet Mechanic Relationship Specialty Start Date End Date Dalia Balbuena DO [address] [place] [address] PCP - General FAMILY PRACTICE 01/29/21 documented as of this encounter
--- OUTSIDE RECORDS SUMMARY | 2024-09-01 16:15 | XMS_ITS | Encounter Summary ---
Author Organization [facility] Address [facility] [address] [place] [address] Care Team Providers Care Charger Tester Name Role Phone Dalia Balbuena Primary Care Provider [phone] Encounter Details Date Type Department Care Team (Latest Contact Info) Description 03/04/2024 MyChart Message Enc [facility] Medical Group Multispecialty Care - [facility] [address] [facility], [address] [place] [address] Esvin Brown MD 3 [place] [address] Need number to call for [...] Sex Assigned at Female 06/30/2024 5:04 PM ZIPPER MACHINE OPERATOR Legal Sex Female 11:46 PM CDT Gender Identity Female 08/04/2024 9:52 AM ZIPPER MACHINE OPERATOR Sexual Orientation Not on file documented as of this encounter Plan of Treatment Upcoming Encounters Date Type Department Care Team (Late st Contact Info) Description 09/17/2024 3:[address] [facility] [place] [address] Davonte Marie FNP [address] [place] [address] 09/24/2024 9:40 AM CDT Office Visit [facility] Medical Group Multispecialty Care - [place] [address] [place] [address] Esvin Brown MD [address] [place] [address] documented as of this encounter Visit Diagnoses Not on filedocumented in this encounter Additional Health Concerns Assessment Noted Time PHQ-9 Depression Total Score: 0 02/09/20 24 9:56 AM CDT documented as of this encounter Care Teams Charger Tester Relationship Specialty Start Date End Date Dalia Balbuena DO [address] [place] [address] PCP - General FAMILY PRACTICE 01/29/21 documented as of this encounter
--- OUTSIDE RECORDS SUMMARY | 2024-09-01 16:15 | XMS_ITS | Encounter Summary ---
Author Organization [facility] Address [facility] [place] [address] Care Team Providers Care Finished Goods Planner Name Role Phone Dalia Balbuena Primary Care Provider [phone] Encounter Details Date Type Department Care Team (Late st Contact Info) Description 06/03/2024 Therapy Plan [facility] Medical Group Multispecialty Care - [facility] [address] [facility], [address] [place] [address] Esvin Brown MD 3 [place] [address] Social History Tobacco Use Types Packs/Day Years [...] Sex Assigned at Female 06/30/2024 5:04 PM GOODWILL REPRESENTATIVE Legal Sex Female 11:46 PM CDT Gender Identity Female 08/04/2024 9:52 AM GOODWILL REPRESENTATIVE Sexual Orientation Not on file 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 Not on file No t on file documented as of this encounter Plan of Treatment Upcoming Encounters Date Type Department Care Team (Late st Contact Info) Description 09/17/2024 3:30 PM CDT Appointment [address] [facility] [place] [address] Davonte Marie FNP [address] [place] [address] 09/24/2024 9:40 AM CDT Office Visit [facility] Medical Group Multispecialty Care - [facility] [address] [facility], [address] [place] [address] Esvin Brown MD [address] [place] [address] documented as of this encounter Visit Diagnoses Not on filedocumented in this encounter Additional Health Concerns Assessment Noted Time PHQ-9 Depression Total Score: 0 03/08/20 24 1:57 PM CDT documented as of this encounter Care Teams Finished Goods Planner Relationship Specialty Start Date End Date Dalia Balbuena DO [address] [place] [address] PCP - General FAMILY PRACTICE 01/29/21 documented as of this encounter
--- OUTSIDE RECORDS SUMMARY | 2024-09-01 16:15 | XMS_ITS | Encounter Summary ---
Author Organization [facility] Address [facility] [place] [address] Care Team Providers Care Gun Synchronizer Name Role Phone Dalia Balbuena Primary Care Provider [phone] Encounter Details Date Type Department Care Team (Late st Contact Info) Description 02/11/2024 MyChart Message Enc [facility] Medical Group Multispecialty Care - [facility] [address] [facility], [address] [place] [address] Esvin Brown MD [address] [place], [place] [phone] [place] [address] [place] Social History Tobacco Use [...] Sex Assigned at Female 06/30/2024 5:04 PM STONE BREAKER Legal Sex Female 11:46 PM CDT Gender Identity Female 08/04/2024 9:52 AM STONE BREAKER Sexual Orientation Not on file documented as of this encounter Plan of Treatment Upcoming Encounters Date Type Department Care Team (Late st Contact Info) Description 09/17/2024 3:[address] [facility] [address] Davonte Marie, BITA [address] [place] [address] 09/24/2024 9:40 AM CDT Office Visit [facility] Medical Group Multispecialty Care - [place] [address] [place] [address] Esvin Brown MD [address] [place] [address] documented as of this encounter Visit Diagnoses Not on filedocumented in this encounter Additional Health Concerns Assessment Noted Time PHQ-9 Depression Total Score: 0 02/09/20 24 9:56 AM CDT documented as of this encounter Care Teams Gun Synchronizer Relationship Specialty Start Date End Date Dalia Balbuena DO [address] [place] [address] PCP - General FAMILY PRACTICE 01/29/21 documented as of this encounter
--- OUTSIDE RECORDS SUMMARY | 2024-09-01 16:15 | XMS_ITS | Encounter Summary ---
Author Organization [facility] Address [address] [facility] [address] [place] [address] Phone Care Team Providers Care Mutuel Department Manager Name Role Phone Sree, Dalia DO Primary Care Provider [phone] Sree, Dalia DO Primary Care Provider [phone] Sree, Dalia DO Unavailable [phone] Rashel Hui MD Unavailable [phone] Esvin Brown MD Unavailable [phone] Encounter Details Date Type Department Care Team (Latest Contact Info) Description 02/08/2021 Orders Only [facility] Scanning, Provider Social History Tobacco Use Types Packs/Day Years Used Date Smoking Tobacco: Never Comments Unknown Sex and Gender Information Value Date Recorded Sex Assigned at Not on file Legal Sex Female 10:51 PM MANAGER TECHNICAL TRAINING Gender Identity Not on file Sexual Orientation [...] on filedocumented in this encounter Care Teams Mutuel Department Manager Relationship Specialty Start Date End Date Dalia Balbuena DO [address] [address] PCP - General Family Medicine 02/02/21 02/15/21 Dalia Balbuena DO [address] [address] PCP - General Family Medicine 02/16/21 Dalia Balbuena DO [address] [address] Family Medicine 02/16/21 Rashel Hui MD [address] [address] Consulting Physician Plastic Surgery 02/02/21 Esvin Brown MD 3 [place] [address] Referring Physician Neurology 12/14/23 documented as of this encounter
--- OUTSIDE RECORDS SUMMARY | 2024-09-01 16:15 | XMS_ITS | Encounter Summary ---
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 [place] [address] Davonte Marie, BITA [address] [place] [address] 09/24/2024 9:40 AM CDT Office Visit [facility] Multispecialty Care - [facility] [address] [facility], [address] [place] [address] Esvin Brown MD [address] [place] [address] documented as of this encounter Visit Diagnoses Not on filedocumented in this encounter Additional Health Concerns Assessment Noted Time PHQ-9 Depression Total Score: 11 025 10:10 AM STUDIO PRODUCER documented as of this encounter Care Teams Special Investigator Relationship Specialty [place] [address] [place] [address] PCP - General FAMILY PRACTICE 01/29/21 documented as of this encounter
--- OUTSIDE RECORDS SUMMARY | 2024-09-01 16:15 | XMS_ITS | Encounter Summary ---
Author Organization [facility] Address [address] [place] [address] Care Team Providers Care Iron Miner Name Role Phone Dalia Balbuena Primary Care Provider [phone] Encounter Details Date Type Department Care Team (Late st Contact Info) Description 05/05/2024 [place]m Message Enc [facility] [address] [place] [address] Neelam Bajwa MD 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 [address] Davonte Marie FNP [address] [place] [address] 09/24/2024 9:40 AM CDT Office Visit [facility] Medical Group Multispecialty Care - [place] [address] [place] [address] Esvin Brown MD [address] [place] [address] documented as of this encounter Visit Diagnoses Not on filedocumented in this encounter Additional Health Concerns Assessment Noted Time PHQ-9 Depression Total Score: 0 03/08/20 24 1:57 PM CDT documented as of this encounter Care Teams Iron Miner Relationship Specialty Start Date End Date Dalia Balbuena DO [address] [place] [address] PCP - General FAMILY PRACTICE 01/29/21 documented as of this encounter
--- OUTSIDE RECORDS SUMMARY | 2024-09-01 16:15 | XMS_ITS | Encounter Summary ---
Author Organization [facility] Facility Care Team Providers Care Size Changer Name Role Phone No, Physician Primary Care Provider [phone] Eron Lambert DO Primary Care Provider [phone] Sree, Dalia DO Primary Care Provider [phone] Sree, Dalia DO Primary Care Provider [phone] Sree, Dalia DO Unavailable [phone] Rashel Hui MD Unavailable [phone] Esvin Brown MD Unavailable [phone] Encounter Details Date Type Department Care Team (Latest Contact Info) Description 12/04/2016 Orders Only [facility] CLINCONV ProviderTheodore MD [address] [place] [address] Social History Tobacco Use Types Packs/Day Years Used Date Smoking Tobacco: Never Comments Unknown Sex and Gender Information Value Date Recorded Sex Assigned at Not on file Legal Sex Female 10:51 PM REGISTERED CLINICAL DIETITIAN Gender Identity Not on file Sexual Orientation [...] on filedocumented in this encounter Care Teams Size Changer Relationship Specialty Start Date End Date No, Physician PCP - General 10/30/20 12/04/20 Eron Lambert DO [address] [place] [address] PCP - General Occupational Medicine 12/05/20 02/01/21 Dalia Balbuena DO [address] [facility] [address] [place] [address] PCP - General Family Medicine 02/02/21 02/15/21 Dalia Balbuena DO [address] [facility] [address] [place], [place] [address] PCP - General Family Medicine 02/16/21 Dalia Balbuena DO [address] [facility] [address] [place], [place] [address] Family Medicine 02/16/21 Rashel Hui MD [address] [facility] [address] [place] [address] Consulting Physician Plastic Surgery 02/02/21 Esvin Brown MD [address] [place], [place] [address] Referring Physician Neurology 12/14/23 documented as of this encounter
--- OUTSIDE RECORDS SUMMARY | 2024-09-01 16:15 | XMS_ITS | Encounter Summary ---
Author Organization [facility] Address [address] [place] [address] Care Team Providers Care Roll Bucker Name Role Phone Dalia Balbuena Primary Care Provider [phone] Encounter Details Date Type Department Care Team (Late Contact Info) Description 05/04/2024 PFSweb Message Enc [facility] [address] [address] [facility] Provider Echocqrdiogram reviewed Social History Tobacco Use [...] Sex Assigned at Female 06/30/2024 5:04 PM TRADE EMBALMER Legal Sex Female 11:46 PM CDT Gender Identity Female 08/04/2024 9:52 AM TRADE EMBALMER Sexual Orientation Not on file 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 on file No t on file documented as of this encounter Plan of Treatment Upcoming Encounters Date Type Department Care Team (Late Contact Info) Description 09/17/2024 3:30 PM CDT Appointment [place] [address] Davonte Marie, BITA [address] [place] [address] 09/24/2024 9:40 AM CDT Office Visit [facility] [address] [place] [address] Esvin Brown MD [address] [place] [address] documented as of this encounter Visit Diagnoses Not on filedocumented in this encounter Additional Health Concerns Assessment Noted Time PHQ-9 Depression Total Score: 0 03/08/20 24 1:57 PM CDT documented as of this encounter Care Teams Roll Bucker Relationship Specialty Start Date End Date Dalia Balbuena DO [address] [place] [address] PCP - General FAMILY PRACTICE 01/29/21 documented as of this encounter
--- OUTSIDE RECORDS SUMMARY | 2024-09-01 16:15 | XMS_ITS | Encounter Summary ---
Author Organization [facility] Facility Care Team Providers Care Sales Manager Prearranged Funerals Name Role Phone No, Physician Primary Care Provider [phone] Eron Lambert DO Primary Care Provider [phone] Sree, Dalia DO Primary Care Provider [phone] Sree, Dalia DO Primary Care Provider [phone] Sree, Dalia DO Unavailable [phone] Rashel Hui MD Unavailable [phone] Esvin Brown MD Unavailable [phone] Encounter Details Date Type Department Care Team (Latest Contact Info) Description 05/05/2016 Orders Only [facility] CLINCONV ProviderTheodore MD [address] [place] [address] Social History Tobacco Use Types Packs/Day Years Used Date Smoking Tobacco: Never Comments Unknown Sex and Gender Information Value Date Recorded Sex Assigned at Not on file Legal Sex Female 10:51 PM TRAVEL TICKETING REVIEWER Gender Identity Not on file Sexual Orientation Not on file documented as of this encounter Plan of Treatment Not on file documented as of this encounter Procedures Procedure Name Priority Date/Time Associated Diagnosis Comments SCAN - LABS 05/07/2016 12:00 AM TRAVEL TICKETING REVIEWER documented in this encounter Results * SCAN - LABS (05/07/2016 12:00 AM TRAVEL TICKETING REVIEWER) Narrative 05/07/2016 12:00 AM TRAVEL TICKETING REVIEWER Ordered by an unspecified provider. us Historical Provider Final Res ult documented in this encounter Visit Diagnoses Not on filedocumented in this encounter Care Teams Sales Manager Prearranged Funerals Relationship Specialty Start Date End Date No, Physician PCP - General 10/30/20 12/04/20 Eron Lambert DO [address] [place] [address] PCP - General Occupational Medicine 12/05/20 02/01/21 Dalia Balbuena DO [address] [facility] [address] [place] [address] PCP - General Family Medicine 02/02/21 02/15/21 Dalia Balbuena DO [address] [facility] [address] [place], [place] [address] PCP - General Family Medicine 02/16/21 Dalia Balbuena DO [address] [address] Family Medicine 02/16/21 Rashel Hui MD [address] [facility] [address] [place] [address] Consulting Physician Plastic Surgery 02/02/21 Esvin Brown MD [address] [place], [place] [address] Referring Physician Neurology 12/14/23 documented as of this encounter
--- OUTSIDE RECORDS SUMMARY | 2024-09-01 16:15 | XMS_ITS | Encounter Summary ---
Author Organization [facility] Facility Care Team Providers Care Casting Machine Operator Helper Name Role Phone No, Physician Primary Care Provider [phone] Eron Lambert DO Primary Care Provider [phone] Sree, Dalia DO Primary Care Provider [phone] Sree, Dalia DO Primary Care Provider [phone] Sree, Dalia DO Unavailable [phone] Rashel Hui MD Unavailable [phone] Esvin Brown MD Unavailable [phone] Encounter Details Date Type Department Care Team (Latest Contact Info) Description 08/01/2016 Orders Only [facility] CLINCONV ProviderTheodore MD [address] [place] [address] Social History Tobacco Use Types Packs/Day Years Used Date Smoking Tobacco: Never Comments Unknown Sex and Gender Information Value Date Recorded Sex Assigned at Not on file Legal Sex Female 10:51 PM HEAD MILLER Gender Identity Not on file Sexual Orientation Not on file documented as of this encounter Plan of Treatment Not on file documented as of this encounter Procedures Procedure Name Priority Date/Time Associated Diagnosis Comments PROCEDURE - RESULT 08/14/2016 12 :00 AM HEAD MILLER PROCEDURE - RESULT 08/02/2016 12 :00 AM HEAD MILLER documented in this encounter Results * PROCEDURE - RESULT (08/14/2016 12:00 AM HEAD MILLER) Narrative 08/14/2016 12:00 AM HEAD MILLER Ordered by an unspecified provider. Historical Provider Final Res ult * PROCEDURE - RESULT (08/02/2016 12:00 AM HEAD MILLER) Narrative 08/02/2016 12:00 AM HEAD MILLER Ordered by an unspecified provider. Historical Provider Final Res ult documented in this encounter Visit Diagnoses Not on filedocumented in this encounter Care Teams Casting Machine Operator Helper Relationship Specialty Start Date End Date No, Physician PCP - General 10/30/20 12/04/20 Eron Lambert DO [address] [place], [place] [address] PCP - General Occupational Medicine 12/05/20 02/01/21 Dalia Balbuena, [address] [facility] [address] [place], [place] [address] PCP - General Family Medicine 02/02/21 02/15/21 Dalia Balbuena DO [address] [facility] [address] [place], [place] [address] PCP - General Family Medicine 02/16/21 Dalia Balbuena, [address] [facility] [address] [place], [place] [address] Family Medicine 02/16/21 Rashel Hui MD [address] [facility] [address] [place], [place] [address] Consulting Physician Plastic Surgery 02/02/21 Esvin Brown MD [address] [place] [address] Referring Physician Neurology 12/14/23 documented as of this encounter
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
--- OUTSIDE RECORDS SUMMARY | 2024-09-01 16:15 | XMS_ITS | Encounter Summary ---
Author Organization [facility] - [facility] Address [facility] [place] [address] Care Team Providers Care Scarfer Name Role Phone Dalia Balbuena Primary Care Provider [phone] Encounter Details Date Type Department Care Team (Late st Contact Info) Description 03/09/2024 MyChart Message Enc [facility] Medical Group Multispecialty Care - [facility] [address] [facility], [address] [place] [address] Esvin Brown MD [address] [place], [place] [phone] Botox appt Social History Tobacco Use Types [...] Sex Assigned at Female 06/30/2024 5:04 PM CHIEF OF STAFF DOCTOR Legal Sex Female 11:46 PM CDT Gender Identity Female 08/04/2024 9:52 AM CHIEF OF STAFF DOCTOR Sexual Orientation Not on file documented as of this encounter Plan of Treatment Upcoming Encounters Date Type Department Care Team (Late st Contact Info) Description 09/17/2024 3:[address] [facility] [place] [address] Davonte Marie FNP [address] [place] [address] 09/24/2024 9:40 AM CDT Office Visit [facility] Medical Group Multispecialty Care - [facility] [address] [place] [address] Esvin Brown MD [address] [place] [address] documented as of this encounter Visit Diagnoses Not on filedocumented in this encounter Additional Health Concerns Assessment Noted Time PHQ-9 Depression Total Score: 0 03/08/20 24 1:57 PM CDT documented as of this encounter Care Teams Scarfer Relationship Specialty Start Date End Date Dalia Balbuena DO [address] [place] [address] PCP - General FAMILY PRACTICE 01/29/21 documented as of this encounter
--- OUTSIDE RECORDS SUMMARY | 2024-09-01 16:15 | XMS_ITS | Encounter Summary ---
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 [place], [place] [id number] Davonte Marie FNP [address] [place] [address] 09/24/2024 9:40 AM CDT Office Visit [facility] Medical Group Multispecialty Care - [facility] 3 [facility], [address] [place] [address] Esvin Brown MD [address] [place] [address] documented as of this encounter Visit Diagnoses Not on filedocumented in this encounter Additional Health Concerns Assessment Noted Time PHQ-9 Depression Total Score: 11 08/04/ 025 10:10 AM MERCHANDISE PRESENTATION ASSOCIATE documented as of this encounter Care Teams Vamp Marker Relationship Specialty [place] [address] [place] [address] PCP - General FAMILY PRACTICE 01/29/21 documented as of this encounter
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
--- OUTSIDE RECORDS SUMMARY | 2024-09-01 16:15 | XMS_ITS | Clinical Summary ---
Author Organization [facility] Address [address] [place] [address] Care Team Providers Care Health Information Managers Name Role Phone Kali Miramontes MD Primary Care Provi desire Source Comments [facility]non-owned Affiliates and Associated Physician Practices is amultiple site organization consisting of ambulatory clinics and hospital sitesin [place], [place], [place]. This disclosure is being madepursuant to the Care Everywhere program and may not contain all information available regarding this patient. Last updated 18.[facility] Allergies Active Allergy Reactions Criticality Noted Date [...] 08/17/2024 Telephone [facility] - Endocrinology [address] [place] [address], [place] [address] Luke Amin MD Appointment from Last 3 [...] Description 10/12/2024 10:00 AM CDT Office Visit [facility] - Endocrinology [address] [place] [address], [place] [address] Luke Amin MD [address] [place] [address] [place] [address] Health Maintenance Due Date Last Done Comments [...] approximately 13% higher for people identified as -Armenian. eGFR by MDRD 80 > OR = [...] 29 [facility] Comment: Test Performed at: [facility] [address] [address] VELASQUEZ PENNY DO,MPH Blood BLOOD SPECIMEN / Unknown 12/10/2018 7:18 AM CDT 12/10/2018 7:19 AM CDT Jeremy Gagnon MD LAB - CHEMISTRY [facility] [address] [place] [address] from Last 3 Months or Most Recently Relevant to Health Maintenance Care Teams Health Information Managers Relationship Specialty Start Date End Date Kali Miramontes MD PCP - General 07/24/15
--- OUTSIDE RECORDS SUMMARY | 2024-09-01 16:15 | XMS_ITS | Encounter Summary ---
Author Organization [facility] Address [address] [place] [address] Care Team Providers Care Car Clerk Pullman Name Role Phone Dalia Balbuena DO Primary Care Provider [phone] Encounter Details Date Type Department Care Team (Late st Contact Info) Description 03/11/2024 PAKt Message Enc [facility] Family Medicine - [place] [id number] [facility], [address] [place] [address] Dalia Balbuena DO [address] [place] [address] pap smear Social History Tobacco [...] Sex Assigned at Female 06/30/2024 5:04 PM GOLDSMITH APPRENTICE Legal Sex Female 11:46 PM CDT Gender Identity Female 08/04/2024 9:52 AM GOLDSMITH APPRENTICE Sexual Orientation Not on file documented as of this encounter Plan of Treatment Upcoming Encounters Date Type Department Care Team (Late st Contact Info) Description 09/17/2024 3:[address] [facility] [address] [place] [address] Davonte Marie FNP [address] [place] [address] 09/24/2024 9:40 AM CDT Office Visit [facility] Multispecialty Care - [facility] [address] [place] [id number] Esvin Brown MD [address] [place] [address] documented as of this encounter Visit Diagnoses Not on filedocumented in this encounter Additional Health Concerns Assessment Noted Time PHQ-9 Depression Total Score: 0 03/08/20 24 1:57 PM CDT documented as of this encounter Care Teams Car Clerk Pullman Relationship Specialty Start Date End Date Dalia Balbuena DO [address] [place] [address] PCP - General FAMILY PRACTICE 01/29/21 documented as of this encounter
== END 2024-09-01 15:31 | disposition left against medical advice (07) ==
LOC: ANHED 14:36
DX: M54.2 Cervicalgia (principal)
CPT/HCPCS: 99199